=== PATIENT | male | born 1930 | race Caucasian/White ===

== ENCOUNTER 2016-09-07 13:34 | Inpatient (IN) | payer OTHER ==
[~2016-09-07] VITALS: Ht 172.7 cm; Wt 92.0 kg
--- NOTE | 2016-09-07 13:54 | EMERGENCY ROOM VISIT NOTE ---
History Report prepared by Parth: Brenda Byrne Under the Supervision of: Dr. Ami English D.O. First contact with patient: 13:43 Chief Complaint: WEAKNESS Stated Complaint: WEAK,FLEM Nursing Triage Summary: pt to the ED with c/o body aches, cough and weakness since tuesday History of Present Illness The patient is a 86 year old male who presents to the Emergency Room with complaints of worsening weakness beginning 3 days prior to arrival. The patient states that he thought at first he got the flu. The patient states that he has global body aches. The patient can typically get around on his own. These past 3 days he has needed help moving and today did not get out of bed until coming to the ED. He states that he feels off balance when he moves. The patient also is experiencing a cough with yellow sputum that at times causes intermittent left sided chest pain. The patient notes two episodes of diarrhea. He is also experiencing a decrease in his appetite. Pt denies headache, change in vision, fevers, chills, sore throat, shortness of breath, nausea, vomiting, pain with urination, and melena. 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 A total of 10 systems reviewed and were otherwise negative. Past Medical & Surgical Medical Problems: (1) Cough (2) Heart murmur Family History Patient reports no known family medical history. Social History Smoking Status: Never Smoker Marital Status: Housing Status: lives with significant other Occupation Status: retired Current/Historical Medications Scheduled Aspirin (Aspirin Ec), 81 MG PO DAILY Atorvastatin (Lipitor), 40 MG PO DAILY Furosemide (Lasix), 20 MG PO EDEMA Insulin Aspart 70/30 (Novolog Mix 70/30), 36 UNITS SC QAM Insulin Aspart 70/30 (Novolog Mix 70/30), 34 UNITS SC QPM Lisinopril (Zestril), 5 MG PO DAILY Pantoprazole (Protonix), 40 MG PO DAILY Allergies Coded Allergies: No Known Allergies (Unverified , 09/07/16) Physical Exam Vital Signs Date Time Temp Pulse Resp B/P (MAP) Pulse Ox O2 Delivery O2 Flow Rate FiO2 7/11/17 16:00 75 18 141/68 94 09/07/16 15:00 72 18 141/72 94 09/07/16 14:00 69 18 147/69 96 09/07/16 13:38 37.3 84 24 132/64 93 Room Air Physical Exam GENERAL: alert, well appearing, well nourished, no distress, non-toxic EYE EXAM: normal conjunctiva, PERRL and EOM's grossly intact OROPHARYNX: no exudate, no erythema, lips, buccal mucosa, and tongue normal and mucous membranes are moist NECK: supple, no nuchal rigidity, no adenopathy, non-tender LUNGS: Clear to auscultation. Normal chest wall mechanics HEART: no murmurs, S1 normal and S2 normal ABDOMEN: abdomen soft, non-tender, normo-active bowel sounds, no masses, no rebound or guarding. BACK: Back is symmetrical on inspection and there is no deformity, no midline tenderness, no CVA tenderness. SKIN: no rashes and no bruising UPPER EXTREMITIES: upper extremities are grossly normal. LOWER EXTREMITIES: No pitting edema. NEURO EXAM: Normal sensorium, cranial nerves II-XII intact, normal speech, Patient with shuffling gait, difficulty walking, required 2 person assistance secondary to weakness. Medical Decision & Procedures ER Provider Diagnostic Interpretation: XRAY result has been interpreted by the radiologist and reviewed by me. SINGLE VIEW CHEST CLINICAL HISTORY: Cough. Generalized weakness FINDINGS: An AP, portable, upright chest radiograph is obtained. No prior studies are available for comparison at the time of dictation. The examination is degraded by portable technique and patient rotation. . The heart is mildly enlarged and there is atherosclerotic calcification of the thoracic aorta. The pulmonary vasculature is noncongested. Airspace consolidation is suggested at the left lung base in the retrocardiac region. No large pleural effusion or pneumothorax is seen. The skeletal structures are osteopenic. The bony thorax is grossly intact. IMPRESSION: Airspace consolidation is suspected at the left lung base in the retrocardiac region. Correlate clinically for evidence of pneumonia. Radiographic follow-up to resolution is recommended.. Electronically signed by: Ethan Love M.D. 09/07/2016 3:31 PM Dictated Date/Time: 09/07/2016 3:30 PM Laboratory Results Test 09/07/16 14:20 09/07/16 14:40 09/07/16 15:00 Prothrombin Time 11.9 SECONDS (9.0-12.0) Prothromb Time International Ratio 1.1 (0.9-1.1) Magnesium Level 1.8 mg/dl (1.8-2.4) Total Bilirubin 1.2 mg/dl (0.2-1) Aspartate Amino Transf (AST/SGOT) 29 U/L (15-37) Alanine Aminotransferase (ALT/SGPT) 39 U/L (12-78) Alkaline Phosphatase 111 U/L (45-117) Pro-B-Type Natriuretic Peptide 805 pg/ml (0-1800) Total Protein 7.7 gm/dl (6.4-8.2) Albumin 2.8 gm/dl (3.4-5.0) Globulin 4.9 gm/dl (2.5-4.0) Albumin/Globulin Ratio 0.6 (0.9-2) Influenza Type A Antigen Neg for Influ A (NEG) Influenza Type B Antigen Neg for Influ B (NEG) Urine Color DK YELLOW Urine Appearance CLOUDY (CLEAR) Urine pH 5.0 (4.5-7.5) Urine Specific Whitmer 1.022 (1.000-1.030) Urine Protein TRACE (NEG) Urine Glucose (UA) NEG (NEG) Urine Ketones NEG (NEG) Urine Occult Blood 1+ (NEG) Urine Nitrite NEG (NEG) Urine Bilirubin NEG (NEG) Urine Urobilinogen NEG (NEG) Urine Leukocyte Esterase NEG (NEG) Urine RBC (Auto) /hpf (0-4) Urine Hyaline Casts (Auto) /lpf (0-5) Urine RBC 5-10 /hpf (0-4) Urine WBC 1-5 /hpf (0-5) Urine Epithelial Cells 0-5 /lpf (0-5) Urine Amorphous Sediment PRESENT (NONE PRSENT) Urine Bacteria NEG (NEG) Urine Hyaline Casts 5-10 /lpf (0-5) Urine Pathogenic Casts /lpf (0) Urine Yeast (Auto) (NONE PRSENT) Date/Time Source Procedure Growth Status 09/07/16 15:00 Urine , Clean Catch Urine Culture - Final MORE THAN THREE TYPES OF ORGANISMS [place]... Complete Laboratory results per my review. Medications Administered Medications (Trade) Dose Ordered Sig/Kameron Route Start Time Stop Time Status Last Admin Dose Admin Sodium Chloride 1,000 ml @ 250 mls/hr Q4H STAT IV 09/07/16 15:31 09/07/16 19:30 DC 09/07/16 15:31 250 MLS/HR Ceftriaxone Sodium (Rocephin Inj) 1 gm NOW STAT IV 09/07/16 15:38 09/07/16 15:39 DC 09/07/16 15:46 1 GM Azithromycin (Zithromax Tab) 500 mg NOW ONCE PO 09/07/16 15:45 09/07/16 15:46 DC 09/07/16 15:46 500 MG Sodium Chloride 1,000 ml @ 100 mls/hr Q10H IV 09/07/16 16:21 10/07/16 16:20 09/08/16 21:51 100 MLS/HR ECG Indication: weakness Rate (beats per minute): 80 Rhythm: normal sinus Findings: no acute ischemic change, no ectopy, other (normal interval, normal axis) ED Course 1344: The patient was evaluated in room A11. A complete history and physical exam was performed. 1524: I reevaluated the patient. 1531: Sodium Chloride 1,000 ml @ 250 mls/hr IV. 1545: Zithromax Tab 500 mg PO. Medical Decision The patient is a 86 year old male who presents to the ED with complaints of weakness. Differential Diagnosis includes but is not limited to dehydration, stroke, anemia, hypoglycemia, hyponatremia, hypernatremia, urinary tract infection, pneumonia, bronchitis, sepsis, gastroenteritis, additional abdominal pathology, metabolic abnormalities and infections. Patient found to have pneumonia, likely the cause of patient's generalized weakness, dizziness, and decline of the last several days. Patient treated here for community-acquired, no risk factors for atypical pathogens, not immune compromised no recent hospitalizations or patient rehabilitation stays. Doubt bacteremia/sepsis. Mildly elevated lactic acid likely secondary to poor by mouth intake and dehydration. Doubt additional cardiac or vascular pathology. Patient cautiously given IV fluids here. Patient with worsening renal function that is new according to family. No evidence of UTI, exam not consistent with obstructive pathology. We'll likely need additional evaluation and trending of creatinine. Discussed all results with patient and family at bedside. Vital signs otherwise stable in the emergency room. Consults Time Called: [phone] Consulting Physician: Dr. Guerra Returned Call: [phone] Guerra for admission. Would like repeat lactic acid level drawn following administration of 1 L of IV fluids. He will otherwise evaluate and treat. Impression Primary Impression: Pneumonia Additional Impressions: Generalized weakness Acute renal failure Scribe Attestation The scribe's documentation has been prepared under my direction and personally reviewed by me in its entirety. I confirm that the note above accurately reflects all work, treatment, procedures, and medical decision making performed by me. Departure Information Dispostion Being Evaluated By Hospitalist Referrals Mary Jo Noyola D.O. (PCP) Problem Qualifiers Primary Impression: Pneumonia Pneumonia type: due to unspecified organism Laterality: left Lung location : lower lobe of lung Qualified Codes: J18.1 - Lobar pneumonia, unspecified organism Additional Impressions: Acute renal failure Acute renal failure type: unspecified Qualified Codes: N17.9 - Acute kidney failure, unspecified
[2016-09-07] MEDS ORDERED: NVLGI7030 SC ×2 (14:24)
[2016-09-07] MEDS ORDERED: ATOR-24 PO (14:24)
[2016-09-07] MEDS ORDERED: LISI-729 PO (14:24)
[2016-09-07] MEDS ORDERED: ASPI81TA28 PO (14:24)
[2016-09-07] MEDS ORDERED: FURO-85 PO (14:24)
[2016-09-07] MEDS ORDERED: PANT40TA PO (14:24)
[2016-09-07 14:42] LABS: BASO % 0.1 %; BASO ABS # 0.01 K/uL (0-0.2); COMPLETE YES; EOS % 0.3 %; HEMATOCRIT 38.3 % (42-52); IG% 0.2 %; LYMPH % 9.7 %; LYMPH ABS # 1.43 K/uL (1.2-3.4); MEAN CELL VOLUME 91.6 fL (80-100); MEAN CORPUSCULAR HEMOGLOBIN 32.8 pg (25-34); MEAN CORPUSCULAR HGB CONC 35.8 g/dl (32-36); MEAN PLATELET VOLUME 9.4 fL (7.4-10.4); MONO % 12.8 %; NEUT % 76.9 %; PLATELET COUNT 239 K/uL (130-400); RED BLOOD COUNT 4.18 M/uL (4.7-6.1); WHITE BLOOD COUNT 14.67 K/uL (4.8-10.8)
[2016-09-07 14:56] LABS: INR 1.1 (0.9-1.1); PROTHROMBIN TIME (PATIENT) 11.9 SECONDS (9.0-12.0)
[2016-09-07 15:07] LABS: ALT/SGPT 39 U/L (12-78); BLOOD UREA NITROGEN 26 mg/dl (7-18); BUN/CREATININE RATIO 11.6 (10-20); CALCIUM 8.8 mg/dl (8.5-10.1); CARBON DIOXIDE 23 mmol/L (21-32); CHLORIDE 102 mmol/L (98-107); GLUCOSE 186 mg/dl (70-99); MAGNESIUM 1.8 mg/dl (1.8-2.4); POTASSIUM 4.2 mmol/L (3.5-5.1); SODIUM 136 mmol/L (136-145)
[2016-09-07 15:12] LABS: ALB/GLOB RATIO 0.6 (0.9-2); ALKALINE PHOSPHATASE 111 U/L (45-117); AST/SGOT 29 U/L (15-37)
[2016-09-07] MEDS ORDERED: SODIUM CHLORIDE 0.9% 1000ML 1,000 ML IV STA (15:31)
[2016-09-07 15:32] LABS: URINE APPEARANCE CLOUDY (CLEAR); URINE BILIRUBIN NEG (NEG); URINE COLOR DK YELLOW; URINE NITRITE NEG (NEG); URINE SPECIFIC GRAVITY 1.022 (1.000-1.030); UROBILINOGEN NEG (NEG); ZZUR CULT IF INDIC CLEAN CATCH YES
--- NOTE | 2016-09-07 15:32 | DIAGNOSTIC IMAGING REPORT ---
SINGLE VIEW CHEST CLINICAL HISTORY: Cough. Generalized weakness FINDINGS: An AP, portable, upright chest radiograph is obtained. No prior studies are available for comparison at the time of dictation. The examination is degraded by portable technique and patient rotation. . The heart is mildly enlarged and there is atherosclerotic calcification of the thoracic aorta. The pulmonary vasculature is noncongested. Airspace consolidation is suggested at the left lung base in the retrocardiac region. No large pleural effusion or pneumothorax is seen. The skeletal structures are osteopenic. The bony thorax is grossly intact. IMPRESSION: Airspace consolidation is suspected at the left lung base in the retrocardiac region. Correlate clinically for evidence of pneumonia. Radiographic follow-up to resolution is recommended.. Electronically signed by: Ethan Love M.D. 09/07/2016 3:31 PM Dictated Date/Time: 09/07/2016 3:30 PM
[2016-09-07 15:36] LABS: MANUAL MICROSCOPIC REQUIRED? YES; REVIEW REQ? NO
[2016-09-07] MEDS ORDERED: CEFTRIAXONE SOD INJ 1 GM ADDVIAL IV STA (15:38)
[2016-09-07] MEDS ORDERED: AZITHROMYCIN 250 MG TAB PO ONE (15:45)
[2016-09-07 15:49] LABS: URINE AMORPHOUS SEDIMENT PRESENT (NONE PRSENT)
[2016-09-07 15:50] LABS: URINE BACTERIA NEG (NEG)
--- NOTE | 2016-09-07 15:56 | History and Physical ---
History & Physical Date & Time of Service: Sep 07, 2016 at 15:56 Chief Complaint: Blas Hansen Primary Care Physician: Mary Jo Noyola D.O. History of Present Illness Source: patient, family Patient is an 86 yr male with PMH of DM II, CKD III, HLP, HTN, GERD presents with history of worsening weakness and cough since 4 days duration. Patient states that on Tuesday patient developed flu like symptoms including runny nose , generalized backache, weakness and cough which gradually worsened. At baseline patient ambulates whithout help and currently requiring 2 people to help him ambulate. Reports cough with productive yellowish sputum and associated left sides chest pain with cough. Reports having chronic diarrhea and incontinence since many years and has not been worked up in the past. Also reports dizziness, decreased appetite and burning micturition but denies increased urinary frequency. Also denies any SOB, wheezing, abdominal pain, nausea, vomiting, headache, change in vision, recent travel, sick contact, fever , chills. Past Medical/Surgical History Past Medical History:As Above Past Surgical history: Appendectomy Family History Patient reports no known family medical history. Reviewed. Not contributory Social History Smoking Status: Never Smoker Alcohol Use: socially Drug Use: none Marital Status: Occupational Status: retired Allergies Coded Allergies: No Known Allergies (Unverified , 09/07/16) Home Medications Scheduled Aspirin (Aspirin Ec), 81 MG PO DAILY Atorvastatin (Lipitor), 40 MG PO DAILY Furosemide (Lasix), 20 MG PO EDEMA Insulin Aspart 70/30 (Novolog Mix 70/30), 36 UNITS SC QAM Insulin Aspart 70/30 (Novolog Mix 70/30), 34 UNITS SC QPM Lisinopril (Zestril), 5 MG PO DAILY Pantoprazole (Protonix), 40 MG PO DAILY Review of Systems See HPI for pertinent positives & negatives. A total of 10 systems reviewed and were otherwise negative. Physical Exam Vital Signs Date Time Temp Pulse Resp B/P (MAP) Pulse Ox O2 Delivery O2 Flow Rate FiO2 09/07/16 13:38 37.3 84 24 132/64 93 Room Air General Appearance: WD/WN, no apparent distress Head: normocephalic, atraumatic Eyes: normal inspection, PERRL, EOMI ENT: normal ENT inspection, hearing grossly normal Neck: supple, trachea midline Respiratory/Chest: chest non-tender, no respiratory distress, no accessory muscle use, + pertinent finding (Left base, decreased Breath sounds, few creps) Cardiovascular: regular rate, rhythm, + systolic murmur, + pertinent finding ( Trace edema) Abdomen/GI: normal bowel sounds, non tender, soft Back: normal inspection Extremities/Musculoskelatal: normal inspection, no calf tenderness, + pertinent finding (Trace eedma) 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, no motor/sensory deficits, alert, normal mood/affect, oriented x 3 Skin: normal color, warm/dry Diagnostics Laboratory Results Results Past 24 Hours Test 09/07/16 14:20 09/07/16 14:40 09/07/16 15:00 Range/Units White Blood Count 14.67 4.8-10.8 K/uL Red Blood Count 4.18 4.7-6.1 M/uL Hemoglobin 13.7 14.0-18.0 g/dL Hematocrit 38.3 42-52 % Mean Corpuscular Volume 91.6 80-100 fL Mean Corpuscular Hemoglobin 32.8 25-34 pg Mean Corpuscular Hemoglobin Concent 35.8 32-36 g/dl Platelet Count 239 130-400 K/uL Mean Platelet Volume 9.4 7.4-10.4 fL Neutrophils (%) (Auto) 76.9 % Lymphocytes (%) (Auto) 9.7 % Monocytes (%) (Auto) 12.8 % Eosinophils (%) (Auto) 0.3 % Basophils (%) (Auto) 0.1 % Neutrophils # (Auto) 11.28 1.4-6.5 K/uL Lymphocytes # (Auto) 1.43 1.2-3.4 K/uL Monocytes # (Auto) 1.88 0.11-0.59 K/uL Eosinophils # (Auto) 0.04 0-0.5 K/uL Basophils # (Auto) 0.01 0-0.2 K/uL RDW Standard Deviation 43.9 36.4-46.3 fL RDW Coefficient of Variation 13.1 11.5-14.5 % Immature Granulocyte % (Auto) 0.2 % Immature Granulocyte # (Auto) 0.03 0.00-0.02 K/uL Prothrombin Time 11.9 9.0-12.0 SECONDS Prothromb Time International Ratio 1.1 0.9-1.1 Sodium Level 136 136-145 mmol/L Potassium Level 4.2 3.5-5.1 mmol/L Chloride Level 102 98-107 mmol/L Carbon Dioxide Level 23 21-32 mmol/L Anion Gap 11.0 3-11 mmol/L Blood Urea Nitrogen 26 7-18 mg/dl Creatinine 2.20 0.60-1.40 mg/dl Est Creatinine Clear Calc Drug Dose 26.9 ml/min Estimated GFR () 30.3 Estimated GFR (Non- 26.2 BUN/Creatinine Ratio 11.6 10-20 Random Glucose 186 70-99 mg/dl Lactic Acid Level 2.5 0.4-2.0 mmol/L Calcium Level 8.8 8.5-10.1 mg/dl Magnesium Level 1.8 1.8-2.4 mg/dl Total Bilirubin 1.2 0.2-1 mg/dl Aspartate Amino Transf (AST/SGOT) 29 15-37 U/L Alanine Aminotransferase (ALT/SGPT) 39 12-78 U/L Alkaline Phosphatase 111 45-117 U/L Troponin I < 0.015 0-0.045 ng/ml Pro-B-Type Natriuretic Peptide 805 0-1800 pg/ml Total Protein 7.7 6.4-8.2 gm/dl Albumin 2.8 3.4-5.0 gm/dl Globulin 4.9 2.5-4.0 gm/dl Albumin/Globulin Ratio 0.6 0.9-2 Influenza Type A Antigen Neg for Influ A NEG Influenza Type B Antigen Neg for Influ B NEG Urine Color DK YELLOW Urine Appearance CLOUDY CLEAR Urine pH 5.0 4.5-7.5 Urine Specific Hunker 1.022 1.000-1.030 Urine Protein TRACE NEG Urine Glucose (UA) NEG NEG Urine Ketones NEG NEG Urine Occult Blood 1+ NEG Urine Nitrite NEG NEG Urine Bilirubin NEG NEG Urine Urobilinogen NEG NEG Urine Leukocyte Esterase NEG NEG Urine RBC (Auto) 0-4 /hpf Urine Hyaline Casts (Auto) 0-5 /lpf Urine RBC 5-10 0-4 /hpf Urine WBC 1-5 0-5 /hpf Urine Epithelial Cells 0-5 0-5 /lpf Urine Amorphous Sediment PRESENT NONE PRSENT Urine Bacteria NEG NEG Urine Hyaline Casts 5-10 0-5 /lpf Urine Pathogenic Casts 0 /lpf Urine Yeast (Auto) NONE PRSENT Microbiology Results 09/07/16 Urine Culture, Received Pending Diagnostic Radiology CXR: Airspace consolidation is suspected at the left lung base in the retrocardiac region. Correlate clinically for evidence of pneumonia. Radiographic follow-up to resolution is recommended.. EKG EKG: NSR Impression Assessment and Plan Sepsis secondary to CAP: Presented with Leukocytosis, elevated lactate Admit in Tele Start on IV ceftriaxone, Azithromycin Blood/Sputum cultures Trend lactate levels IV fluids Oxygen PRN Check PCR for flu Left sided Chest Pain: EKG: no acute changes Troponin 1st set negative Currently chest pain free ESPINOZA on CKD III: Baseline Cr:1.6 Monitor renal function Continue IV Fluids Hold lisinopril, Lasix Burning Micturition: UTI less likely Urine culture ordered Already on Ceftriaxone DM II Last A1C:7.4 in 06/2014 Takes Novolog 70/30 BID: 38 units AM and 36 units HS Start ISS, Lantus: Titrate as needed HLP: Continue statins HTN: Stable Hold lisinopril, Lasix secondary to ESPINOZA and sepsis Monitor GERD Continue PPI DVT PX: Heparin SQ Code Status: Full Code
[2016-09-07] MEDS ORDERED: ONDANSETRON INJ 2 MG/ML 2 ML VIAL IV PRN (16:30)
[2016-09-07] MEDS ORDERED: ACETAMINOPHEN 325 MG TAB PO PRN (16:30)
[2016-09-07] MEDS ORDERED: GLUCOSE 10 TABS/TUBE PO PRN (16:45)
[2016-09-07] MEDS ORDERED: GLUCAGON FOR INJ 1 MG VIAL SQ PRN (16:45)
[2016-09-07] MEDS ORDERED: GLUCOSE 40% GEL 15 GM TUBE PO PRN (16:45)
[2016-09-07] MEDS ORDERED: DEXTROSE 50% 50 ML SYR IV PRN (16:45)
[2016-09-07 18:21] VITALS: BP 146/75; PULSE 78; TEMP 36.9; O2SAT 93
[2016-09-07] MEDS: SODIUM CHLORIDE 0.9% 1000ML 1,000 ML IV SCH (18:28)
[2016-09-07 18:50] VITALS: BP 146/75; PULSE 78; TEMP 36.9; Ht 172.7 cm; Wt 92.0 kg
[2016-09-07] MEDS: CEFTRIAXONE SOD INJ 1 GM in DEXTROSE 5% ADD-VANTAGE 50ML 50 ML IV SCH (19:28)
[2016-09-07 19:54] VITALS: BP 129/67; PULSE 76; TEMP 37.7; O2SAT 92
[2016-09-07] MEDS ORDERED: LANTUS PER UNIT CHARGE SC SCH (20:00)
[2016-09-07] MEDS ORDERED: PNEUMOCOCCAL ADMINISTRATION CHARGE ONE (21:00)
[2016-09-07] MEDS ORDERED: PNEUMOCOCCAL POLYSACCHARIDES 25 MCG/0.5 ML VIAL/SYR IM. ONE (21:00)
[2016-09-07] MEDS: INSULIN ASPART 100 UNITS/ML 3 ML PEN SC SCH (22:13)
[2016-09-07] MEDS: INSULIN GLARGINE SOLOSTAR 100 UNITS/ML 3 ML PEN SC SCH (22:14)
[2016-09-07] MEDS: HEPARIN SOD 5000 UNIT/0.5 ML CARP SQ SCH (22:15)
[2016-09-07 23:42] VITALS: BP 132/77; PULSE 72; TEMP 36.8; O2SAT 94
[2016-09-08] VITALS (9 sets, daily range): BP systolic 115–147; BP diastolic 45–79; PULSE 71–77; TEMP 36.5–37.1; O2SAT 90–93
[2016-09-08 01:35] LABS: INFLUENZA A PCR Neg for Influ A (NEG); INFLUENZA B PCR Neg for Influ B (NEG)
[2016-09-08] MEDS: SODIUM CHLORIDE 0.9% 1000ML 1,000 ML IV SCH ×3 (03:25→21:51)
[2016-09-08 06:08] LABS: BASO % 0.1 %; BASO ABS # 0.01 K/uL (0-0.2); COMPLETE YES; EOS % 1.9 %; HEMATOCRIT 36.6 % (42-52); IG% 0.3 %; LYMPH % 15.2 %; LYMPH ABS # 1.84 K/uL (1.2-3.4); MEAN CELL VOLUME 91.3 fL (80-100); MEAN CORPUSCULAR HEMOGLOBIN 30.9 pg (25-34); MEAN CORPUSCULAR HGB CONC 33.9 g/dl (32-36); MEAN PLATELET VOLUME 9.4 fL (7.4-10.4); MONO % 14.6 %; NEUT % 67.9 %; PLATELET COUNT 239 K/uL (130-400); RED BLOOD COUNT 4.01 M/uL (4.7-6.1); WHITE BLOOD COUNT 12.13 K/uL (4.8-10.8)
[2016-09-08] MEDS: HEPARIN SOD 5000 UNIT/0.5 ML CARP SQ SCH ×3 (06:11→21:53)
[2016-09-08 06:45] LABS: ESTIMATED AVERAGE GLUCOSE 160 mg/dl; HA1C FLAG Normal (Normal)
[2016-09-08 06:46] LABS: BUN/CREATININE RATIO 13.2 (10-20); CALCIUM 8.1 mg/dl (8.5-10.1); CREATININE 1.9 mg/dl (0.60-1.40); POTASSIUM 3.5 mmol/L (3.5-5.1)
[2016-09-08] MEDS: PANTOprazole SOD 40 MG TAB PO SCH (07:59)
[2016-09-08] MEDS: ASPIRIN 81 MG ECTAB PO SCH (07:59)
[2016-09-08] MEDS: ATORVASTATIN 40 MG TAB PO SCH (07:59)
[2016-09-08] MEDS: INSULIN GLARGINE SOLOSTAR 100 UNITS/ML 3 ML PEN SC SCH ×2 (09:04→21:53)
[2016-09-08] MEDS: AZITHROMYCIN IV 500 MG in DEXTROSE 5% 250ML 250 ML IV SCH (09:04)
[2016-09-08] MEDS: INSULIN ASPART 100 UNITS/ML 3 ML PEN SC SCH ×4 (09:04→21:52)
--- NOTE | 2016-09-08 18:31 | Progress Note ---
Internal Med Progress Note Date of Service: Sep 08, 2016. Provider Documentation: SUBJECTIVE: feels better than yesterday still significantly tired and weak afebrile appetite remains poor /son /daughter in law visiting OBJECTIVE: Vital Signs-as noted below Exam: General-no sign of distress Eyes-sclera non icteric ENT-NAD Neck-no JVD Lungs-rales at base Heart-regular S1/S2 Abdomen-soft,non tender Extremities-no edema Neuro-AAO x3, no focal deficit Lab data as noted below. ASSESSMENT & PLAN: Sepsis secondary to CAP: Presented with Leukocytosis, elevated lactate /fever clinically improved, afebrile , cough has improved cont IV ceftriaxone, Azithromycin for another 24 hrs Blood/Sputum cultures-ordered lactic acid has normalized with IVF Left sided Chest Pain: due to pneumonia EKG: no acute changes Troponin 1st set negative Currently chest pain free OK to D/c tele ESPINOZA on CKD III: due to sepsis /infection Baseline Cr:1.6 Cr improved 2.2-. 1.9 Continue IV Fluids Hold lisinopril, Lasix DM II Last A1C:7.4 in 06/2014 Takes Novolog 70/30 BID: 38 units AM and 36 units HS Start ISS, Lantus: Titrate as needed HLP: Continue statins HTN: Stable Hold lisinopril, Lasix secondary to ESPINOZA and sepsis Monitor GERD Continue PPI DVT PX: Heparin SQ Code Status: Full Code DISPOSITION expected to be discharged home when medically stable PT/OT eval requested for generalized weakness family updated at baseline : Vital Signs: Date Time Temp Pulse Resp B/P (MAP) Pulse Ox O2 Delivery O2 Flow Rate FiO2 09/08/16 15:45 36.5 77 18 135/79 (97) 91 Room Air 09/08/16 12:00 91 Room Air 09/08/16 11:13 37.1 73 18 131/69 (89) 91 09/08/16 08:00 91 Room Air 09/08/16 07:24 37.0 71 18 145/73 (97) 92 Room Air 09/08/16 06:34 36.8 73 20 145/78 (100) 91 Room Air 09/08/16 05:09 37.0 73 18 115/45 (68) 90 Room Air 09/08/16 04:00 Room Air 09/08/16 00:01 Room Air 09/07/16 23:42 36.8 72 18 132/77 (95) 94 Room Air 09/07/16 20:00 Room Air 09/07/16 19:54 37.7 76 18 129/67 (87) 92 Room Air 09/07/16 18:50 36.9 78 18 146/75 Room Air Lab Results: Results Past 24 Hours Test 09/07/16 19:00 09/07/16 19:23 09/07/16 20:27 09/07/16 23:50 Range/Units Creatine Kinase MB Ratio 0-3.0 Lactic Acid Level 2.5 0.4-2.0 mmol/L Creatine Kinase MB 0.9 0.5-3.6 ng/ml Troponin I < 0.015 0-0.045 ng/ml Bedside Glucose 140 70-99 mg/dl Influenza Type A (RT-PCR) Neg for Influ A NEG Influenza Type B (RT-PCR) Neg for Influ B NEG Test 09/08/16 01:03 09/08/16 01:11 09/08/16 03:27 09/08/16 05:31 Range/Units Creatine Kinase MB 0.9 0.5-3.6 ng/ml Creatine Kinase MB Ratio 0-3.0 Troponin I < 0.015 0-0.045 ng/ml Lactic Acid Level 1.5 0.4-2.0 mmol/L Bedside Glucose 109 70-99 mg/dl White Blood Count 12.13 4.8-10.8 K/uL Red Blood Count 4.01 4.7-6.1 M/uL Hemoglobin 12.4 14.0-18.0 g/dL Hematocrit 36.6 42-52 % Mean Corpuscular Volume 91.3 80-100 fL Mean Corpuscular Hemoglobin 30.9 25-34 pg Mean Corpuscular Hemoglobin Concent 33.9 32-36 g/dl Platelet Count 239 130-400 K/uL Mean Platelet Volume 9.4 7.4-10.4 fL Neutrophils (%) (Auto) 67.9 % Lymphocytes (%) (Auto) 15.2 % Monocytes (%) (Auto) 14.6 % Eosinophils (%) (Auto) 1.9 % Basophils (%) (Auto) 0.1 % Neutrophils # (Auto) 8.24 1.4-6.5 K/uL Lymphocytes # (Auto) 1.84 1.2-3.4 K/uL Monocytes # (Auto) 1.77 0.11-0.59 K/uL Eosinophils # (Auto) 0.23 0-0.5 K/uL Basophils # (Auto) 0.01 0-0.2 K/uL RDW Standard Deviation 44.1 36.4-46.3 fL RDW Coefficient of Variation 13.2 11.5-14.5 % Immature Granulocyte % (Auto) 0.3 % Immature Granulocyte # (Auto) 0.04 0.00-0.02 K/uL Sodium Level 139 136-145 mmol/L Potassium Level 3.5 3.5-5.1 mmol/L Chloride Level 107 98-107 mmol/L Carbon Dioxide Level 21 21-32 mmol/L Anion Gap 11.0 3-11 mmol/L Blood Urea Nitrogen 25 7-18 mg/dl Creatinine 1.90 0.60-1.40 mg/dl Est Creatinine Clear Calc Drug Dose 30.7 ml/min Estimated GFR () 36.2 Estimated GFR (Non- 31.2 BUN/Creatinine Ratio 13.2 10-20 Random Glucose 104 70-99 mg/dl Estimated Average Glucose 160 mg/dl Hemoglobin A1c 7.2 4.5-5.6 % Calcium Level 8.1 8.5-10.1 mg/dl Test 09/08/16 07:38 09/08/16 11:27 09/08/16 16:19 Range/Units Bedside Glucose 101 205 166 70-99 mg/dl Microbiology Results 09/07/16 C.difficile Toxin B Gene (PCR) - Final, Complete No C. difficile toxin B gene detected
[2016-09-08] MEDS: CEFTRIAXONE SOD INJ 1 GM in DEXTROSE 5% ADD-VANTAGE 50ML 50 ML IV SCH (19:23)
[2016-09-09] VITALS: BP 142/72; PULSE 65; TEMP 37.4; O2SAT 92
[2016-09-09] MEDS: HEPARIN SOD 5000 UNIT/0.5 ML CARP SQ SCH ×3 (06:12→21:27)
[2016-09-09] MEDS: ATORVASTATIN 40 MG TAB PO SCH (07:35)
[2016-09-09] MEDS: PANTOprazole SOD 40 MG TAB PO SCH (07:35)
[2016-09-09] MEDS: ASPIRIN 81 MG ECTAB PO SCH (07:35)
[2016-09-09 07:54] VITALS: BP 141/66; PULSE 72; TEMP 36.6; O2SAT 94
[2016-09-09] MEDS: SODIUM CHLORIDE 0.9% 1000ML 1,000 ML IV SCH (07:58)
[2016-09-09 08:00] VITALS: O2SAT 94
[2016-09-09] MEDS: INSULIN ASPART 100 UNITS/ML 3 ML PEN SC SCH ×4 (08:01→21:00)
[2016-09-09] MEDS: INSULIN GLARGINE SOLOSTAR 100 UNITS/ML 3 ML PEN SC SCH ×2 (08:02→21:26)
[2016-09-09] MEDS: AZITHROMYCIN IV 500 MG in DEXTROSE 5% 250ML 250 ML IV SCH (08:58)
[2016-09-09 15:33] VITALS: BP 133/65; PULSE 68; TEMP 36.8; O2SAT 91
[2016-09-09 15:57] LABS: BUN/CREATININE RATIO 14.4 (10-20); CALCIUM 7.8 mg/dl (8.5-10.1); CREATININE 1.6 mg/dl (0.60-1.40); POTASSIUM 3.8 mmol/L (3.5-5.1)
[2016-09-09] MEDS ORDERED: LEVOFLOXACIN 500 MG TAB PO SCH (18:30)
--- NOTE | 2016-09-09 18:38 | Progress Note ---
Internal Med Progress Note Date of Service: Sep 09, 2016. Provider Documentation: SUBJECTIVE: much better today able to do PT /OT minimum cough no fever or chills OBJECTIVE: Vital Signs-as noted below Exam: General-no sign of distress Eyes-sclera non icteric ENT-NAD Neck-no JVD Lungs-rales at base Heart-regular S1/S2 Abdomen-soft,non tender Extremities-no edema Neuro-AAO x3, no focal deficit Lab data as noted below. ASSESSMENT & PLAN: Sepsis secondary to CAP: improved now Presented with Leukocytosis, elevated lactate /fever afebrile , cough has improved abx changed to PO Levaquin Blood/Sputum cultures-ordered Left sided Chest Pain: symptom has resolved due to pneumonia EKG: no acute changes Troponin 1st set negative Currently chest pain free ESPINOZA on CKD III: resolved due to sepsis /infection Baseline Cr:1.6 Cr improved 2.2-. 1.9 -> 1.6 will D/C i VD Hold lisinopril, Lasix DM II Last A1C:7.4 in 06/2014 Takes Novolog 70/30 BID: 38 units AM and 36 units HS Start ISS, Lantus: Titrate as needed HLP: Continue statins HTN: Stable Hold lisinopril, Lasix secondary to ESPINOZA and sepsis Monitor GERD Continue PPI DVT PX: Heparin SQ Code Status: Full Code DISPOSITION expected to be discharged home when medically stable cont PT/OT eval Vital Signs: Date Time Temp Pulse Resp B/P (MAP) Pulse Ox O2 Delivery O2 Flow Rate FiO2 09/09/16 16:10 Room Air 09/09/16 15:33 36.8 68 18 133/65 (87) 91 Room Air 09/09/16 08:00 94 Room Air 09/09/16 07:54 36.6 72 20 141/66 (91) 94 Room Air 09/09/16 00:00 37.4 65 20 142/72 (95) 92 Room Air 09/09/16 00:00 92 Room Air 09/08/16 19:32 36.8 77 20 147/75 (99) 93 Room Air Lab Results: Results Past 24 Hours Test 09/08/16 20:11 09/09/16 07:42 09/09/16 11:20 09/09/16 15:01 Range/Units Bedside Glucose 305 177 267 70-99 mg/dl Sodium Level 136 136-145 mmol/L Potassium Level 3.8 3.5-5.1 mmol/L Chloride Level 106 98-107 mmol/L Carbon Dioxide Level 21 21-32 mmol/L Anion Gap 9.0 3-11 mmol/L Blood Urea Nitrogen 23 7-18 mg/dl Creatinine 1.60 0.60-1.40 mg/dl Est Creatinine Clear Calc Drug Dose 36.5 ml/min Estimated GFR () 44.6 Estimated GFR (Non- 38.4 BUN/Creatinine Ratio 14.4 10-20 Random Glucose 202 70-99 mg/dl Calcium Level 7.8 8.5-10.1 mg/dl Test 09/09/16 16:37 Range/Units Bedside Glucose 201 70-99 mg/dl Microbiology Results 09/09/16 Gram Stain - Final, Resulted 09/09/16 Sputum Culture, Resulted Pending
[2016-09-09 23:29] VITALS: BP 168/80; PULSE 69; TEMP 37.3; O2SAT 91
[2016-09-10 00:58] VITALS: BP 138/66
[2016-09-10] MEDS: HEPARIN SOD 5000 UNIT/0.5 ML CARP SQ SCH ×3 (06:00→21:05)
[2016-09-10 06:54] LABS: HEMATOCRIT 34.9 % (42-52); MEAN CELL VOLUME 88.8 fL (80-100); MEAN CORPUSCULAR HEMOGLOBIN 30.5 pg (25-34); MEAN CORPUSCULAR HGB CONC 34.4 g/dl (32-36); PLATELET COUNT 266 K/uL (130-400); RED BLOOD COUNT 3.93 M/uL (4.7-6.1); WHITE BLOOD COUNT 8.93 K/uL (4.8-10.8)
[2016-09-10 07:06] LABS: BUN/CREATININE RATIO 13.2 (10-20); CALCIUM 8.4 mg/dl (8.5-10.1); CREATININE 1.5 mg/dl (0.60-1.40); POTASSIUM 3.7 mmol/L (3.5-5.1)
[2016-09-10] MEDS: INSULIN ASPART 100 UNITS/ML 3 ML PEN SC SCH ×4 (07:50→21:04)
[2016-09-10] MEDS: ASPIRIN 81 MG ECTAB PO SCH (07:51)
[2016-09-10] MEDS: INSULIN GLARGINE SOLOSTAR 100 UNITS/ML 3 ML PEN SC SCH ×2 (07:51→21:04)
[2016-09-10] MEDS: ATORVASTATIN 40 MG TAB PO SCH (07:51)
[2016-09-10] MEDS: PANTOprazole SOD 40 MG TAB PO SCH (07:52)
[2016-09-10 08:20] VITALS: BP 135/68; PULSE 56; TEMP 36.8; O2SAT 95
[2016-09-10] MEDS ORDERED: AZITHROMYCIN 250 MG TAB PO SCH (09:00)
--- NOTE | 2016-09-10 09:31 | Progress Note ---
Subjective Date of Service: Sep 10, 2016. Subjective Pt evaluation today including: conversation w/ patient, physical exam, lab review, review of studies, review of inpatient medication list Saw/examined the patient in room 277 States he feels weaker than usual, wants to get up and walk around has worked with PT/OT Denies shortness of breath or chest pain cough improving Problem List Medical Problems: (1) Acute renal failure Status: Acute (2) Generalized weakness Status: Acute (3) Pneumonia Status: Acute Review of Systems Constitutional: No fever, No chills Respiratory: + cough, + sputum, No wheezing, No shortness of breath, No dyspnea on exertion, No dyspnea at rest, No hemoptysis Cardiac: No chest pain, No edema, No palpitations Abdomen: No pain, No nausea, No vomiting, No diarrhea Heme: No abnormal bleeding/bruising Medications Current Inpatient Medications Medications (Trade) Dose Ordered Sig/Kameron Route Start Time Stop Time Status Last Admin Dose Admin Heparin Sodium (Porcine) (Heparin Sq 5000 Unit/0.5ml) 5,000 unit Q8 SQ 09/07/16 22:00 10/07/16 21:59 09/10/16 06:00 5,000 UNIT Acetaminophen (Tylenol Tab) 650 mg Q4H PRN PO 09/07/16 16:30 10/07/16 16:29 Ondansetron HCl (Zofran Inj) 4 mg Q6H PRN IV 09/07/16 16:30 10/07/16 16:29 Aspirin (Ecotrin Tab) 81 mg DAILY PO 09/08/16 09:00 10/08/16 08:59 09/10/16 07:51 81 MG Atorvastatin Calcium (Lipitor Tab) 40 mg DAILY PO 09/08/16 09:00 10/08/16 08:59 09/10/16 07:51 40 MG Pantoprazole Sodium (Protonix Tab) 40 mg DAILY PO 09/08/16 09:00 10/08/16 08:59 09/10/16 07:52 40 MG Insulin Aspart (novoLOG ASPART) SLIDING SCALE If C... ACHS SC 09/07/16 21:00 10/07/16 20:59 09/10/16 07:50 3 UNITS Glucose (Glucose 40% Gel) 15-30 GRAMS 15 GRAMS... UD PRN PO 09/07/16 16:45 10/07/16 16:44 Glucose (Glucose Chew Tab) 4-8 Tablets 4 Tabl... UD PRN PO 09/07/16 16:45 10/07/16 16:44 Dextrose (Dextrose 50% 50ML Syringe) 25-50ML OF 50% DW IV FOR... UD PRN IV 09/07/16 16:45 10/07/16 16:44 Glucagon (Glucagon Inj) 1 mg UD PRN SQ 09/07/16 16:45 10/07/16 16:44 Insulin Glargine (Lantus Solostar Pen) 15 units BID SC 09/09/16 21:00 10/09/16 20:59 09/10/16 07:51 15 UNITS Levofloxacin (Levaquin Tab) 250 mg DAILY@11 PO 09/10/16 11:00 09/16/16 10:59 Objective Vital Signs Date Time Temp Pulse Resp B/P (MAP) Pulse Ox O2 Delivery O2 Flow Rate FiO2 09/10/16 08:20 36.8 56 18 135/68 (90) 95 Room Air 09/10/16 00:58 138/66 (90) 09/10/16 00:00 Room Air 09/09/16 23:29 37.3 69 18 168/80 (109) 91 Room Air 09/09/16 16:10 Room Air 09/09/16 15:33 36.8 68 18 133/65 (87) 91 Room Air Physical Exam General Appearance: no apparent distress Respiratory/Chest: chest non-tender, lungs clear, normal breath sounds, no respiratory distress, no accessory muscle use Cardiovascular: regular rate, rhythm, no edema, no murmur Abdomen: normal bowel sounds, non tender, soft Neurologic/Psychiatric: no motor/sensory deficits, alert, normal mood/affect Skin: normal color Laboratory Results Last 24 Hours Test 09/09/16 11:20 09/09/16 15:01 09/09/16 16:37 09/09/16 20:03 Bedside Glucose 267 mg/dl 201 mg/dl 138 mg/dl Sodium Level 136 mmol/L Potassium Level 3.8 mmol/L Chloride Level 106 mmol/L Carbon Dioxide Level 21 mmol/L Anion Gap 9.0 mmol/L Blood Urea Nitrogen 23 mg/dl Creatinine 1.60 mg/dl Est Creatinine Clear Calc Drug Dose 36.5 ml/min Estimated GFR () 44.6 Estimated GFR (Non- 38.4 BUN/Creatinine Ratio 14.4 Random Glucose 202 mg/dl Calcium Level 7.8 mg/dl Test 09/10/16 06:16 09/10/16 07:32 White Blood Count 8.93 K/uL Red Blood Count 3.93 M/uL Hemoglobin 12.0 g/dL Hematocrit 34.9 % Mean Corpuscular Volume 88.8 fL Mean Corpuscular Hemoglobin 30.5 pg Mean Corpuscular Hemoglobin Concent 34.4 g/dl RDW Standard Deviation 41.8 fL RDW Coefficient of Variation 12.9 % Platelet Count 266 K/uL Mean Platelet Volume 9.0 fL Sodium Level 140 mmol/L Potassium Level 3.7 mmol/L Chloride Level 109 mmol/L Carbon Dioxide Level 22 mmol/L Anion Gap 9.0 mmol/L Blood Urea Nitrogen 20 mg/dl Creatinine 1.50 mg/dl Est Creatinine Clear Calc Drug Dose 38.9 ml/min Estimated GFR () 48.2 Estimated GFR (Non- 41.6 BUN/Creatinine Ratio 13.2 Random Glucose 126 mg/dl Calcium Level 8.4 mg/dl Bedside Glucose 122 mg/dl Assessment and Plan This is an 86 year old male with a PMH of DM2, CKD stage 3, HTN, HLD presented to the hospital with weakness and cough and found to have sepsis secondary to pneumonia Sepsis secondary to CAP much improved WBC and lactic acidosis resolved cough improving now on PO antibiotics will need more PT/OT due to weakness prior to discharge home L Sided Chest Pain, resolved denies chest pain, likely pain is related to pneumonia initial set of cardiac enzymes negative, no pain has recurred Acute Kidney Injury superimposed on CKD stage 3 creatinine on admission 2.2 has been trending downwards, down to 1.5 no longer on IVFs, encourage PO intake DM2 Currently on sliding scale and Lantus BSGs are improving; goal should be around 140-180 HTN hold CACHORRO-I and Lasix for now due to ESPINOZA BP has been doing okay without these HLD Continue statins GERD Continue PPI DVT ppx Heparin SQ FULL CODE
[2016-09-10] MEDS: LEVOFLOXACIN 250 MG TAB PO SCH (12:16)
[2016-09-10 15:36] VITALS: BP 143/65; PULSE 57; TEMP 36.5; O2SAT 92
[2016-09-10 19:40] VITALS: O2SAT 92
[2016-09-10 23:35] VITALS: BP 133/74; PULSE 60; TEMP 36.9; O2SAT 93
[2016-09-11] MEDS: HEPARIN SOD 5000 UNIT/0.5 ML CARP SQ SCH (05:52)
[2016-09-11 06:28] LABS: HEMATOCRIT 35.5 % (42-52); MEAN CELL VOLUME 89.2 fL (80-100); MEAN CORPUSCULAR HEMOGLOBIN 31.7 pg (25-34); MEAN CORPUSCULAR HGB CONC 35.5 g/dl (32-36); MEAN PLATELET VOLUME 8.8 fL (7.4-10.4); PLATELET COUNT 313 K/uL (130-400); RED BLOOD COUNT 3.98 M/uL (4.7-6.1); WHITE BLOOD COUNT 8.29 K/uL (4.8-10.8)
[2016-09-11 07:07] LABS: BUN/CREATININE RATIO 12.1 (10-20); CALCIUM 8.7 mg/dl (8.5-10.1); CREATININE 1.7 mg/dl (0.60-1.40); POTASSIUM 3.6 mmol/L (3.5-5.1)
[2016-09-11 07:24] VITALS: BP 151/67; PULSE 61; TEMP 36.7; O2SAT 93
[2016-09-11] MEDS: PANTOprazole SOD 40 MG TAB PO SCH (07:59)
[2016-09-11] MEDS: ASPIRIN 81 MG ECTAB PO SCH (07:59)
[2016-09-11] MEDS: ATORVASTATIN 40 MG TAB PO SCH (07:59)
[2016-09-11] MEDS: INSULIN ASPART 100 UNITS/ML 3 ML PEN SC SCH ×2 (08:27→12:32)
[2016-09-11] MEDS: INSULIN GLARGINE SOLOSTAR 100 UNITS/ML 3 ML PEN SC SCH (08:27)
[2016-09-11] MEDS ORDERED: LVQ250 PO (11:57)
--- NOTE | 2016-09-11 11:59 | Discharge Instructions ---
Discharge Instructions Date of Service Sep 11, 2016. Admission Reason for Admission: Cough, Pneumonia Discharge Discharge Diagnosis / Problem: SEPSIS -RESOLVED, /PNEUMONIA Discharge Goals Goal(s): Decrease discomfort, Diagnostic testing, Therapeutic intervention Activity Recommendations Activity Limitations: resume your previous activity . Instructions / Follow-Up Instructions / Follow-Up HOSPITAL FOLLOW UP WITH FAMILY PHYSICIAN IN A WEEK , PLEASE CALL OFFICE FOR APPOINTMENT Current Hospital Diet Patient's current hospital diet: Diabetes Type 2 Diet Discharge Diet Recommended Diet: Diabetes Type 2 Diet Pending Studies Studies pending at discharge: no Laboratory Results Hemoglobin A1c Test 09/08/16 05:31 Range/Units Estimated Average Glucose 160 mg/dl Hemoglobin A1c 7.2 H 4.5-5.6 % Medical Emergencies . Who to Call and When: Medical Emergencies: If at any time you feel your situation is an emergency, please call 911 immediately. . Non-Emergent Contact Non-Emergency issues call your: Primary Care Provider . . "Provider Documentation" section prepared by Kate Collins. . VTE Core Measure Inpt VTE Proph given/why not?: Unfractionated heparin SQ
[2016-09-11 12:13] VITALS: BP 151/67; PULSE 61; TEMP 36.7; O2SAT 93
--- NOTE | 2016-09-11 12:19 | Progress Note ---
Internal Med Progress Note Date of Service: Sep 11, 2016. Provider Documentation: SUBJECTIVE: no complain of cough or SOB ambulated independently in hallway energy and functional level is back to baseline eager to be discharged home today present at bedside OBJECTIVE: Vital Signs-as noted below Exam: General-no sign of distress Eyes-sclera non icteric ENT-NAD Neck-no JVD Lungs-clear to auscultate , no wheeze or rales Heart-regular S1/S2 Abdomen-soft,non tender Extremities-no edema Neuro-AAO x3, no focal deficit Lab data as noted below. ASSESSMENT & PLAN: Sepsis secondary to CAP: resolved , no fever or chills , cough has improved Presented with Leukocytosis, elevated lactate /fever abx changed to PO Levaquin complete 2 more days tx Blood culture -no growth /Sputum cultures -normal [place] Left sided Chest Pain: symptom has resolved no further complain due to pneumonia EKG: no acute changes Troponin 1st set negative ESPINOZA on CKD III: resolved , cr at baseline due to sepsis /infection lisinopril, Lasix-resumed on discharge DM II Last A1C:7.4 in 06/2014 Takes Novolog 70/30 BID: 38 units AM and 36 units HS-resumed on discharge HLP: Continue statins HTN: Stable cont lisinopril, Lasix Monitor GERD Continue PPI DVT PX: Heparin SQ Code Status: Full Code DISPOSITION appreciate PT/OT eval pt is at his baseline functional status able to walk on hallway ; walk up steps stable to be discharged home pt and family does not feel need for home health visiting nurse Family physician follow up in 1 week Vital Signs: Date Time Temp Pulse Resp B/P (MAP) Pulse Ox O2 Delivery O2 Flow Rate FiO2 09/11/16 08:00 Room Air 09/11/16 07:24 36.7 61 18 151/67 (95) 93 Room Air 09/11/16 00:35 Room Air 09/10/16 23:35 36.9 60 20 133/74 (93) 93 Room Air 09/10/16 19:40 92 Room Air 09/10/16 16:00 Room Air 09/10/16 15:36 36.5 57 16 143/65 (91) 92 Room Air Lab Results: Results Past 24 Hours Test 09/10/16 16:26 09/10/16 20:25 09/11/16 06:03 09/11/16 07:33 Range/Units Bedside Glucose 127 185 134 70-99 mg/dl White Blood Count 8.29 4.8-10.8 K/uL Red Blood Count 3.98 4.7-6.1 M/uL Hemoglobin 12.6 14.0-18.0 g/dL Hematocrit 35.5 42-52 % Mean Corpuscular Volume 89.2 80-100 fL Mean Corpuscular Hemoglobin 31.7 25-34 pg Mean Corpuscular Hemoglobin Concent 35.5 32-36 g/dl RDW Standard Deviation 41.6 36.4-46.3 fL RDW Coefficient of Variation 12.9 11.5-14.5 % Platelet Count 313 130-400 K/uL Mean Platelet Volume 8.8 7.4-10.4 fL Sodium Level 140 136-145 mmol/L Potassium Level 3.6 3.5-5.1 mmol/L Chloride Level 105 98-107 mmol/L Carbon Dioxide Level 26 21-32 mmol/L Anion Gap 9.0 3-11 mmol/L Blood Urea Nitrogen 21 7-18 mg/dl Creatinine 1.70 0.60-1.40 mg/dl Est Creatinine Clear Calc Drug Dose 34.3 ml/min Estimated GFR () 41.4 Estimated GFR (Non- 35.7 BUN/Creatinine Ratio 12.1 10-20 Random Glucose 136 70-99 mg/dl Calcium Level 8.7 8.5-10.1 mg/dl Test 09/11/16 11:35 Range/Units Bedside Glucose 188 70-99 mg/dl
--- NOTE | 2016-09-11 12:22 | Discharge Summary ---
Discharge Summary Date of Service Sep 11, 2016. Discharge Summary Admission Date: Sep 07, 2016 at 16:26 Discharge Date: Sep 11, 2016 Discharge Disposition: Home Principal Diagnosis: SEPSIS -RESOLVED, /PNEUMONIA Procedures: CXRAY : IMPRESSION: Airspace consolidation is suspected at the left lung base in the retrocardiac region. Correlate clinically for evidence of pneumonia. Radiographic follow-up to resolution is recommended.. Medication Reconciliation New Medications: Levofloxacin (Levofloxacin) 250 Mg Tab 250 MG PO DAILY for 2 Days, #2 TAB Continued Medications: Aspirin (Aspirin Ec) 81 Mg Tab 81 MG PO DAILY Atorvastatin (Lipitor) 40 Mg Tab 40 MG PO DAILY Furosemide (Lasix) 20 Mg Tab 20 MG PO EDEMA Insulin Aspart 70/30 (Novolog Mix 70/30) Susp 36 UNITS SC QAM Insulin Aspart 70/30 (Novolog Mix 70/30) Susp 34 UNITS SC QPM Lisinopril (Zestril) 5 Mg Tab 5 MG PO DAILY Pantoprazole (Protonix) 40 Mg Tab 40 MG PO DAILY Admission Information HPI (per Admitting provider): Patient is an 86 yr male with PMH of DM II, CKD III, HLP, HTN, GERD presents with history of worsening weakness and cough since 4 days duration. Patient states that on Tuesday patient developed flu like symptoms including runny nose , generalized backache, weakness and cough which gradually worsened. At baseline patient ambulates whithout help and currently requiring 2 people to help him ambulate. Reports cough with productive yellowish sputum and associated left sides chest pain with cough. Reports having chronic diarrhea and incontinence since many years and has not been worked up in the past. Also reports dizziness, decreased appetite and burning micturition but denies increased urinary frequency. Also denies any SOB, wheezing, abdominal pain, nausea, vomiting, headache, change in vision, recent travel, sick contact, fever , chills. Physical Exam (per Admitting): General Appearance: WD/WN, no apparent distress Head: normocephalic, atraumatic Eyes: normal inspection, PERRL, EOMI ENT: normal ENT inspection, hearing grossly normal Neck: supple, trachea midline Respiratory/Chest: chest non-tender, no respiratory distress, no accessory muscle use, + pertinent finding (Left base, decreased Breath sounds, few creps) Cardiovascular: regular rate, rhythm, + systolic murmur, + pertinent finding (Trace edema) Abdomen/GI: normal bowel sounds, non tender, soft Back: normal inspection Extremities/Musculoskelatal: normal inspection, no calf tenderness, + pertinent finding (Trace eedma) 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, no motor/sensory deficits, alert , normal mood/affect, oriented x 3 Skin: normal color, warm/dry Hospital Course Sepsis secondary to CAP: resolved , no fever or chills , cough has improved Presented with Leukocytosis, elevated lactate /fever abx changed to PO Levaquin complete 2 more days tx Blood culture -no growth /Sputum cultures -normal [place] Left sided Chest Pain: symptom has resolved no further complain due to pneumonia EKG: no acute changes Troponin 1st set negative ESPINOZA on CKD III: resolved , cr at baseline due to sepsis /infection lisinopril, Lasix-resumed on discharge DM II Last A1C:7.4 in 06/2014 Takes Novolog 70/30 BID: 38 units AM and 36 units HS-resumed on discharge HLP: Continue statins HTN: Stable cont lisinopril, Lasix Monitor GERD Continue PPI DVT PX: Heparin SQ Code Status: Full Code DISPOSITION appreciate PT/OT eval pt is at his baseline functional status able to walk on hallway ; walk up steps stable to be discharged home pt and family does not feel need for home health visiting nurse Family physician follow up in 1 week Total time spent on discharge = 35 mins This includes examination of the patient, discharge planning, medication reconciliation, and communication with other providers. Discharge Instructions Discharge Instructions Date of Service Sep 11, 2016. Admission Reason for Admission: Cough, Pneumonia Discharge Discharge Diagnosis / Problem: SEPSIS -RESOLVED, /PNEUMONIA Discharge Goals Goal(s): Decrease discomfort, Diagnostic testing, Therapeutic intervention Activity Recommendations Activity Limitations: resume your previous activity . Instructions / Follow-Up Instructions / Follow-Up HOSPITAL FOLLOW UP WITH FAMILY PHYSICIAN IN A WEEK , PLEASE CALL OFFICE FOR APPOINTMENT Current Hospital Diet Patient's current hospital diet: Diabetes Type 2 Diet Discharge Diet Recommended Diet: Diabetes Type 2 Diet Pending Studies Studies pending at discharge: no Laboratory Results Hemoglobin A1c Test 09/08/16 05:31 Range/Units Estimated Average Glucose 160 mg/dl Hemoglobin A1c 7.2 H 4.5-5.6 % Medical Emergencies . Who to Call and When: Medical Emergencies: If at any time you feel your situation is an emergency, please call 911 immediately. . Non-Emergent Contact Non-Emergency issues call your: Primary Care Provider . . "Provider Documentation" section prepared by Kate Collins. . VTE Core Measure Inpt VTE Proph given/why not?: Unfractionated heparin SQ
[2016-09-11] MEDS: LEVOFLOXACIN 250 MG TAB PO SCH (12:33)
== END 2016-09-11 13:07 | disposition home or self-care (01) | DRG 871 ==
LOC: C.EDB 13:37 → C.MED 16:26 → CANRESERV 16:41 → ENRESERV 16:41
PROVIDERS: ADMIT Internal Medicine; ATTEND Hospitalist
DX: A41.9 Sepsis, unspecified organism (principal); J18.9 Pneumonia, unspecified organism; R65.20 Severe sepsis without septic shock; N17.9 Acute kidney failure, unspecified; E87.2 Acidosis; R19.7 Diarrhea, unspecified; E11.9 Type 2 diabetes mellitus without complications; N18.3 Chronic kidney disease, stage 3 (moderate); I12.9 Hypertensive chronic kidney disease with stage 1 through stage 4 chronic kidney disease, or unspecified chronic kidney disease; K21.9 Gastro-esophageal reflux disease without esophagitis; E78.5 Hyperlipidemia, unspecified; Z51.81 Encounter for therapeutic drug level monitoring; Z79.899 Other long term (current) drug therapy; Z79.82 Long term (current) use of aspirin; Z79.4 Long term (current) use of insulin

== ENCOUNTER 2016-12-11 13:17 | Inpatient (IN) | payer OTHER ==
[~2016-12-11] VITALS: Ht 172.7 cm; Wt 91.5 kg
[~2016-12-11 13:17] MED LIST: ASPI81TA28 PO; ATOR-24 PO; FURO-85 PO; LISI-729 PO; LVQ250 PO; NVLGI7030 SC; PANT40TA PO
[2016-12-11] MEDS ORDERED: SODIUM CHLORIDE 0.9% 1000ML 1,000 ML IV STA (13:53)
[2016-12-11 14:31] LABS: BASO % 0.1 %; BASO ABS # 0.01 K/uL (0-0.2); COMPLETE YES; EOS % 1.5 %; HEMATOCRIT 43.1 % (42-52); IG% 0.1 %; LYMPH % 42.5 %; LYMPH ABS # 3.02 K/uL (1.2-3.4); MEAN CELL VOLUME 89.4 fL (80-100); MEAN CORPUSCULAR HEMOGLOBIN 30.3 pg (25-34); MEAN CORPUSCULAR HGB CONC 33.9 g/dl (32-36); MEAN PLATELET VOLUME 9.6 fL (7.4-10.4); MONO % 9.8 %; PLATELET COUNT 199 K/uL (130-400); RED BLOOD COUNT 4.82 M/uL (4.7-6.1); WHITE BLOOD COUNT 7.11 K/uL (4.8-10.8)
[2016-12-11 14:35] LABS: URINE APPEARANCE CLEAR (CLEAR); URINE BILIRUBIN NEG (NEG); URINE COLOR YELLOW; URINE NITRITE NEG (NEG); URINE SPECIFIC GRAVITY 1.027 (1.000-1.030); UROBILINOGEN NEG (NEG)
--- NOTE | 2016-12-11 14:35 | DIAGNOSTIC IMAGING REPORT ---
CT SCAN OF THE BRAIN WITHOUT IV CONTRAST CLINICAL HISTORY: Generalized weakness. COMPARISON STUDY: No priors. TECHNIQUE: Unenhanced axial CT scan of the brain is performed from the vertex to the skull base. CT DOSE: 614.27 mGy.cm FINDINGS: Brain parenchyma: There are age-related involutional changes noting mild subcortical and periventricular microangiopathic change. There is no hemorrhage, mass effect, or evidence of acute territorial ischemia by CT criteria. See-white matter is preserved. No extra-axial fluid collection is seen. Ventricles, sulci, cisterns: Prominent secondary to involutional change. Intracranial vasculature: There is atherosclerotic calcification of the cavernous carotid and vertebral arteries. Calvarium: Unremarkable. Sinuses and mastoids: The visualized paranasal sinuses are clear. The mastoid air cells are well pneumatized. Orbits: The bony orbits are grossly intact. There are bilateral ocular lens implants. IMPRESSION: There is no hemorrhage, mass effect, or evidence of acute territorial ischemia by CT criteria. Electronically signed by: Ethan Love M.D. 12/11/2016 2:34 PM Dictated Date/Time: 12/11/2016 2:32 PM
--- NOTE | 2016-12-11 14:36 | DIAGNOSTIC IMAGING REPORT ---
SINGLE VIEW CHEST CLINICAL HISTORY: Generalized weakness. FINDINGS: An AP, portable, upright chest radiograph is compared to study dated 09/07/2016. The examination is degraded by portable technique and patient rotation. The heart is mildly enlarged and there is atherosclerotic calcification of the thoracic aorta. The pulmonary vasculature is noncongested. Chronic interstitial thickening is unchanged. There is no airspace consolidation, large pleural effusion, or pneumothorax. The skeletal structures are osteopenic. The bony thorax is grossly intact. IMPRESSION: Cardiomegaly with no acute cardiopulmonary abnormality. Electronically signed by: Ethan Love M.D. 12/11/2016 2:35 PM Dictated Date/Time: 12/11/2016 2:34 PM
[2016-12-11 14:38] LABS: MANUAL MICROSCOPIC REQUIRED? NO; REVIEW REQ? NO
[2016-12-11 14:39] LABS: PROTHROMBIN TIME (PATIENT) 11.2 SECONDS (9.0-12.0)
[2016-12-11 14:50] LABS: ALT/SGPT 42 U/L (12-78); AST/SGOT 29 U/L (15-37); BLOOD UREA NITROGEN 23 mg/dl (7-18); BUN/CREATININE RATIO 13.7 (10-20); CALCIUM 9.4 mg/dl (8.5-10.1); CARBON DIOXIDE 25 mmol/L (21-32); CHLORIDE 109 mmol/L (98-107); GLUCOSE 155 mg/dl (70-99); POTASSIUM 4.1 mmol/L (3.5-5.1); SODIUM 141 mmol/L (136-145)
[2016-12-11 15:01] LABS: ALKALINE PHOSPHATASE 103 U/L (45-117)
[2016-12-11] MEDS ORDERED: ASPIRIN 324 MG CHEW PO STA (15:05)
--- NOTE | 2016-12-11 15:13 | EMERGENCY ROOM VISIT NOTE ---
History Report prepared by Parth: Christen Nunez Under the Supervision of: Dr. Kobe Mosher M.D. First contact with patient: 13:23 Chief Complaint: CONFUSION Stated Complaint: CONFUSION, DIZZY, LOSS OF MEMORY History of Present Illness The patient is an 86 year old white male with a past medical history of DM and TIA who presents to the ED with a cc of worsening confusion beginning yesterday. Per sons, they met the patient two days ago for dinner and he was complaining of dizziness. Yesterday he was confused. He didn't remember what he had done the day before. He was still dizzy and was staggering. Family states that "his memory is suddenly gone." Family denies recent falls. Negative fevers , chills, cough, chest pain, abdominal pain, urinary symptoms . He takes a daily aspirin. His BSG was 206 this morning, per . Source of History: patient, family, spouse/significant other Onset: yesterday Position: other (global) Quality: other (confusion) Timing: worsening Modifying Factors (Worsening): other (time) Associated Symptoms: No fevers, No chills, No cough, No chest pain, No abdominal pain, No urinary symptoms Note: Pt notes dizziness. Family denies recent falls. Review of Systems See HPI for pertinent positives and negatives. A total of ten systems were reviewed and were otherwise negative. Past Medical & Surgical Medical Problems: (1) Altered mental status (2) Cough (3) Diabetes mellitus (4) Heart murmur (5) TIA (transient ischemic attack) Family History Patient reports no known family medical history. Social History Smoking Status: Never Smoker Drug Use: none Marital Status: Housing Status: lives with significant other Occupation Status: retired Current/Historical Medications Scheduled Aspirin (Aspirin Ec), 81 MG PO DAILY Atorvastatin (Lipitor), 40 MG PO DAILY Furosemide (Lasix), 20 MG PO EDEMA Insulin Aspart 70/30 (Novolog Mix 70/30), 36 UNITS SC QAM Insulin Aspart 70/30 (Novolog Mix 70/30), 34 UNITS SC QPM Lisinopril (Zestril), 5 MG PO DAILY Pantoprazole (Protonix), 40 MG PO DAILY Allergies Coded Allergies: No Known Allergies (Unverified , 12/11/16) Physical Exam Vital Signs Date Time Temp Pulse Resp B/P (MAP) Pulse Ox O2 Delivery O2 Flow Rate FiO2 12/11/16 16:12 66 20 150/87 97 Room Air 12/11/16 15:45 97 Room Air 12/11/16 15:12 61 12/11/16 14:56 62 18 145/71 97 Room Air 12/11/16 14:15 97 Room Air 12/11/16 13:20 36.6 86 18 148/87 97 Room Air Physical Exam GENERAL: Awake, alert, well-appearing, NAD HENT: Normocephalic, atraumatic. EYES: Normal conjunctiva. Sclera non-icteric. NECK: Supple. No nuchal rigidity. FROM. RESPIRATORY: CTAB, no rhonchi, wheezing, crackles CARDIAC: RRR, no MRG ABDOMEN: Soft, NTND, BS+ MSK: No chest wall TTP, no LE edema NEURO: CN 2-12 intact with the exception of notable dysarthria, GCS 15, follows commands, 5/5 upper and lower extremity strength, no dysmetria, no drift, good finger to nose, no sensory deficits. Doesn't know birthday. Knows name, people in room, state, and type of building. SKIN: No rash or jaundice noted. Medical Decision & Procedures ER Provider Diagnostic Interpretation: Radiology results as stated below per my review and radiologist interpretation: CT SCAN OF THE BRAIN WITHOUT IV CONTRAST CLINICAL HISTORY: Generalized weakness. COMPARISON STUDY: No priors. TECHNIQUE: Unenhanced axial CT scan of the brain is performed from the vertex to the skull base. CT DOSE: 614.27 mGy.cm FINDINGS: Brain parenchyma: There are age-related involutional changes noting mild subcortical and periventricular microangiopathic change. There is no hemorrhage, mass effect, or evidence of acute territorial ischemia by CT criteria. See-white matter is preserved. No extra-axial fluid collection is seen. Ventricles, sulci, cisterns: Prominent secondary to involutional change. Intracranial vasculature: There is atherosclerotic calcification of the cavernous carotid and vertebral arteries. Calvarium: Unremarkable. Sinuses and mastoids: The visualized paranasal sinuses are clear. The mastoid air cells are well pneumatized. Orbits: The bony orbits are grossly intact. There are bilateral ocular lens implants. IMPRESSION: There is no hemorrhage, mass effect, or evidence of acute territorial ischemia by CT criteria. Electronically signed by: Ethan Vilbert, M.D. 12/11/2016 2:34 PM Dictated Date/Time: 12/11/2016 2:32 PM SINGLE VIEW CHEST CLINICAL HISTORY: Generalized weakness. FINDINGS: An AP, portable, upright chest radiograph is compared to study dated 09/07/2016. The examination is degraded by portable technique and patient rotation. The heart is mildly enlarged and there is atherosclerotic calcification of the thoracic aorta. The pulmonary vasculature is noncongested. Chronic interstitial thickening is unchanged. There is no airspace consolidation, large pleural effusion, or pneumothorax. The skeletal structures are osteopenic. The bony thorax is grossly intact. IMPRESSION: Cardiomegaly with no acute cardiopulmonary abnormality. Electronically signed by: Ethan Love M.D. 12/11/2016 2:35 PM Dictated Date/Time: 12/11/2016 2:34 PM Laboratory Results 12/11/16 14:12 Red Blood Count 4.82, Mean Corpuscular Volume 89.4, Mean Corpuscular Hemoglobin 30.3, Mean Corpuscular Hemoglobin Concent 33.9, Mean Platelet Volume 9.6, Neutrophils (%) (Auto) 46.0, Lymphocytes (%) (Auto) 42.5, Monocytes (%) (Auto) 9.8, Eosinophils (%) (Auto) 1.5, Basophils (%) (Auto) 0.1, Neutrophils # (Auto) 3.26, Lymphocytes # (Auto) 3.02, Monocytes # (Auto) 0.70, Eosinophils # (Auto) 0.11, Basophils # (Auto) 0.01 12/11/16 14:12 Test 12/11/16 14:00 12/11/16 14:12 Urine Color YELLOW Urine Appearance CLEAR (CLEAR) Urine pH 5.0 (4.5-7.5) Urine Specific [place] 1.027 (1.000-1.030) Urine Protein NEG (NEG) Urine Glucose (UA) NEG (NEG) Urine Ketones NEG (NEG) Urine Occult Blood NEG (NEG) Urine Nitrite NEG (NEG) Urine Bilirubin NEG (NEG) Urine Urobilinogen NEG (NEG) Urine Leukocyte Esterase NEG (NEG) White Blood Count 7.11 K/uL (4.8-10.8) Red Blood Count 4.82 M/uL (4.7-6.1) Hemoglobin 14.6 g/dL (14.0-18.0) Hematocrit 43.1 % (42-52) Mean Corpuscular Volume 89.4 fL (80-100) Mean Corpuscular Hemoglobin 30.3 pg (25-34) Mean Corpuscular Hemoglobin Concent 33.9 g/dl (32-36) Platelet Count 199 K/uL (130-400) Mean Platelet Volume 9.6 fL (7.4-10.4) Neutrophils (%) (Auto) 46.0 % Lymphocytes (%) (Auto) 42.5 % Monocytes (%) (Auto) 9.8 % Eosinophils (%) (Auto) 1.5 % Basophils (%) (Auto) 0.1 % Neutrophils # (Auto) 3.26 K/uL (1.4-6.5) Lymphocytes # (Auto) 3.02 K/uL (1.2-3.4) Monocytes # (Auto) 0.70 K/uL (0.11-0.59) Eosinophils # (Auto) 0.11 K/uL (0-0.5) Basophils # (Auto) 0.01 K/uL (0-0.2) RDW Standard Deviation 45.4 fL (36.4-46.3) RDW Coefficient of Variation 13.8 % (11.5-14.5) Immature Granulocyte % (Auto) 0.1 % Immature Granulocyte # (Auto) 0.01 K/uL (0.00-0.02) Prothrombin Time 11.2 SECONDS (9.0-12.0) Prothromb Time International Ratio 1.0 (0.9-1.1) Activated Partial Thromboplast Time 24.8 SECONDS (21.0-31.0) Partial Thromboplastin Ratio 1.0 Anion Gap 7.0 mmol/L (3-11) Estimated GFR () 41.4 Estimated GFR (Non- 35.7 BUN/Creatinine Ratio 13.7 (10-20) Calcium Level 9.4 mg/dl (8.5-10.1) Magnesium Level 2.0 mg/dl (1.8-2.4) Total Bilirubin 0.8 mg/dl (0.2-1) Direct Bilirubin 0.2 mg/dl (0-0.2) Aspartate Amino Transf (AST/SGOT) 29 U/L (15-37) Alanine Aminotransferase (ALT/SGPT) 42 U/L (12-78) Alkaline Phosphatase 103 U/L (45-117) Troponin I < 0.015 ng/ml (0-0.045) Total Protein 8.0 gm/dl (6.4-8.2) Albumin 3.6 gm/dl (3.4-5.0) Lipase 138 U/L (73-393) Thyroid Stimulating Hormone (TSH) 1.370 uIu/ml (0.300-4.500) Laboratory results reviewed by me Medications Administered Medications (Trade) Dose Ordered Sig/[place] Route Start Time Stop Time Status Last Admin Dose Admin Sodium Chloride 1,000 ml @ 999 mls/hr Q1H1M STAT IV 12/11/16 13:53 12/11/16 14:53 DC 12/11/16 14:18 999 MLS/HR Aspirin (Aspirin Chew) 324 mg NOW STAT PO 12/11/16 15:05 12/11/16 15:06 DC 12/11/16 15:18 324 MG ECG Indication: altered mental status Rate (beats per minute): 66 Rhythm: sinus rhythm Findings: PAC, other (normal intervals, normal axis. T-wave flattening anteriorly) ED Course 1323: The patient was evaluated in room B6. A complete history and physical exam was performed. 1353: NSS 1000 ml @ 999 mls/hr IV 1505: Aspirin 324 mg PO 1524: I reassessed the patient at this time. He is resting comfortably. I discussed the results and treatment plan with the patient and his family. I answered all pertaining questions that they had. They expressed understanding and verbalized agreement. 1530: I spoke with Dr. Sauceda. We discussed the patients case. The patient will be evaluated by the [facility] for further management. Medical Decision Differential diagnosis: Etiologies such as metabolic, infection, hypoglycemia, electrolyte abnormalities , cardiac sources, intracerebral event, toxicologic, neurologic, as well as others were entertained. Patient was seen and evaluated at the bedside. Patient did have noticeable dysarthria. Patient was alert and oriented to some of the questioning. Patient was able to follow commands without issue. Patient may have had some questionable left upper sternal ED dysmetria. Patient had no drift. Patient agreed strength. Patient had no infectious symptoms no history of seizure and no history of headache or migraines. Patient's sugars today a normal anion gap is also normal. Patient's white count was within normal limits. Chest x-ray clear. UA negative. CT brain negative. EKG no acute ischemic changes. Troponin negative and TSH within normal limits. Was with the family and stated that there is currently not medical reason for why this is occurring and should be seen and evaluated by the inpatient team to help further elucidate the cause of his symptoms. Patient was given a full dose aspirin and recommended for further workup as an inpatient. Medication Reconcilliation Current Medication List: was personally reviewed by me Blood Pressure Screening Patient's blood pressure: Elevated blood pressure Blood pressure disposition: Referred to PCP Consults Time Called: 1526 Consulting Physician: Dr. Sauceda Returned Call: [address] Sauceda. We discussed the patients case. The patient will be evaluated by the [facility] for further management. Impression Primary Impression: Confusion Additional Impressions: Memory loss Dysarthria Scribe Attestation The scribe's documentation has been prepared under my direction and personally reviewed by me in its entirety. I confirm that the note above accurately reflects all work, treatment, procedures, and medical decision making performed by me. Departure Information Dispostion Being Evaluated By Hospitalist Referrals Mary Jo Noyola D.O. (PCP) Patient Instructions My [facility] Problem Qualifiers
[2016-12-11 15:45] VITALS: O2SAT 97; Ht 172.7 cm; Wt 91.5 kg
[2016-12-11] MEDS ORDERED: IV FLUIDS COMPLETED PRN (16:00)
[2016-12-11] MEDS ORDERED: ACETAMINOPHEN 325 MG TAB PO PRN (16:00)
--- NOTE | 2016-12-11 16:38 | History and Physical ---
History & Physical Date & Time of Service: Dec 11, 2016 at 16:00 . Chief Complaint: confusion . Primary Care Physician: Mary Jo Noyola D.O. . History of Present Illness Source: patient, family, clinic records, hospital records 86 YO male from [facility] followed by Dr. Noyola ([facility], [place]). History of hypertension, DM type 2, and other problems noted below. Retired. Lives at home with his spouse. Has remained active- drives, does yard work, gardening, etc. Occasional mild problems with memory, but nothing unusual per family's observations. 2 nights prior to admission patient stated to family that he felt dizzy or lightheaded. Yesterday he was noted to have slurred speech,confusion, and a slightly unsteady gait. Sugars have been running around 200 (normal for him). Family concerned about persistent confusion, so they brought him to the ED today for evaluation. Patient unable to provide much history. He says that he is doing fine. No apparent fever, cough, GI symptoms, urinary symptoms, chest pain, dyspnea, headache. . Past Medical/Surgical History Chronic and Resolved Medical Problems: (1) CKD (chronic kidney disease), stage III Status: Chronic (2) Diabetes mellitus, type 2 Status: Chronic (3) Dyslipidemia Status: Chronic (4) GERD (gastroesophageal reflux disease) Status: Chronic (5) History of pneumonia Permanent Comment: August 2016 Status: Chronic (6) Hypertension Status: Chronic Surgical Problems: (1) Status post appendectomy Status: Chronic . 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[employer]) Immunizations History of Influenza Vaccine: Yes History of Pneumococcal: Yes Allergies Coded Allergies: No Known Allergies (Unverified , 12/11/16) Home Medications Scheduled Aspirin (Aspirin Ec), 81 MG PO DAILY Atorvastatin (Lipitor), 40 MG PO DAILY Furosemide (Lasix), 20 MG PO EDEMA Insulin Aspart 70/30 (Novolog Mix 70/30), 36 UNITS SC QAM Insulin Aspart 70/30 (Novolog Mix 70/30), 34 UNITS SC QPM Lisinopril (Zestril), 5 MG PO DAILY Pantoprazole (Protonix), 40 MG PO DAILY Review of Systems Constitutional- no fever; no weight loss Eyes- no acute visual changes ENT- + sinus drainage Pulmonary- no cough, no shortness of breath Cardiac- no chest pain, no dependent edema GI- no nausea, no vomiting, no diarrhea, no hematochezia - no dysuria, no hematuria Musculoskeletal- + arthritis pain Derm- no rashes, no new skin lesions, no changing skin lesions Hematologic- no unusual bruising, no unusual bleeding Lymphatics- no adenopathy Endocrine- no polyuria or polydipsia; blood sugars typically around 200 Neuro- as noted above . Physical Exam Vital Signs Date Time Temp Pulse Resp B/P (MAP) Pulse Ox O2 Delivery O2 Flow Rate FiO2 12/11/16 16:12 66 20 150/87 97 Room Air 12/11/16 15:45 97 Room Air 12/11/16 15:12 61 12/11/16 14:56 62 18 145/71 97 Room Air 12/11/16 14:15 97 Room Air 12/11/16 13:20 36.6 86 18 148/87 97 Room Air General Appearance: WD/WN, no apparent distress Head: normocephalic, atraumatic Eyes: normal inspection, PERRL, EOMI, funduscopic exam normal (eyelids and conjunctivae normal) ENT: hearing grossly normal, pharynx normal, + pertinent finding (upper and lower dentures) Neck: supple, no adenopathy, thyroid normal, trachea midline Respiratory/Chest: lungs clear, no respiratory distress, no accessory muscle use Cardiovascular: regular rate, rhythm, no gallop, no JVD, + systolic murmur (II/ sys mumur LSB), + abnormal peripheral pulses (diminished pedal pulses), + pertinent finding (trace dependent edema) Abdomen/GI: normal bowel sounds, non tender, soft, no organomegaly, no pulsatile mass Extremities/Musculoskelatal: normal inspection, no calf tenderness, normal capillary refill, + pertinent finding (onychomycosis toenails; no diabetic foot lesions) 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, + pertinent finding (alert, slow mentation, tangential, unable to complete thoughts; oriented to name, day of the week but not year, place; cannot name president; mild dysarthria; no facial palsy; motor strength upper and lower extremities intact; patellar DTR's 1/2 bilat; plantar reflexes downgoing bilat; minimal difficulty with finger-nose; no cogwheel rigidity) Skin: normal color, warm/dry, no rash Lymphatic: no adenopathy (cervical) Diagnostics Laboratory Results Results Past 24 Hours Test 12/11/16 14:00 12/11/16 14:12 Range/Units Urine Color YELLOW Urine Appearance CLEAR CLEAR Urine pH 5.0 4.5-7.5 Urine Specific [place] 1.027 1.000-1.030 Urine Protein NEG NEG Urine Glucose (UA) NEG NEG Urine Ketones NEG NEG Urine Occult Blood NEG NEG Urine Nitrite NEG NEG Urine Bilirubin NEG NEG Urine Urobilinogen NEG NEG Urine Leukocyte Esterase NEG NEG White Blood Count 7.11 4.8-10.8 K/uL Red Blood Count 4.82 4.7-6.1 M/uL Hemoglobin 14.6 14.0-18.0 g/dL Hematocrit 43.1 42-52 % Mean Corpuscular Volume 89.4 80-100 fL Mean Corpuscular Hemoglobin 30.3 25-34 pg Mean Corpuscular Hemoglobin Concent 33.9 32-36 g/dl Platelet Count 199 130-400 K/uL Mean Platelet Volume 9.6 7.4-10.4 fL Neutrophils (%) (Auto) 46.0 % Lymphocytes (%) (Auto) 42.5 % Monocytes (%) (Auto) 9.8 % Eosinophils (%) (Auto) 1.5 % Basophils (%) (Auto) 0.1 % Neutrophils # (Auto) 3.26 1.4-6.5 K/uL Lymphocytes # (Auto) 3.02 1.2-3.4 K/uL Monocytes # (Auto) 0.70 0.11-0.59 K/uL Eosinophils # (Auto) 0.11 0-0.5 K/uL Basophils # (Auto) 0.01 0-0.2 K/uL RDW Standard Deviation 45.4 36.4-46.3 fL RDW Coefficient of Variation 13.8 11.5-14.5 % Immature Granulocyte % (Auto) 0.1 % Immature Granulocyte # (Auto) 0.01 0.00-0.02 K/uL Prothrombin Time 11.2 9.0-12.0 SECONDS Prothromb Time International Ratio 1.0 0.9-1.1 Activated Partial Thromboplast Time 24.8 21.0-31.0 SECONDS Partial Thromboplastin Ratio 1.0 Sodium Level 141 136-145 mmol/L Potassium Level 4.1 3.5-5.1 mmol/L Chloride Level 109 98-107 mmol/L Carbon Dioxide Level 25 21-32 mmol/L Anion Gap 7.0 3-11 mmol/L Blood Urea Nitrogen 23 7-18 mg/dl Creatinine 1.70 0.60-1.40 mg/dl Estimated GFR () 41.4 Estimated GFR (Non- 35.7 BUN/Creatinine Ratio 13.7 10-20 Random Glucose 155 70-99 mg/dl Calcium Level 9.4 8.5-10.1 mg/dl Magnesium Level 2.0 1.8-2.4 mg/dl Total Bilirubin 0.8 0.2-1 mg/dl Direct Bilirubin 0.2 0-0.2 mg/dl Aspartate Amino Transf (AST/SGOT) 29 15-37 U/L Alanine Aminotransferase (ALT/SGPT) 42 12-78 U/L Alkaline Phosphatase 103 45-117 U/L Troponin I < 0.015 0-0.045 ng/ml Total Protein 8.0 6.4-8.2 gm/dl Albumin 3.6 3.4-5.0 gm/dl Lipase 138 73-393 U/L Thyroid Stimulating Hormone (TSH) 1.370 0.300-4.500 uIu/ml Microbiology Results 12/11/16 Urine Culture, Received Pending Diagnostic Radiology SINGLE VIEW CHEST FINDINGS: An AP, portable, upright chest radiograph is compared to study dated 09/07/2016. The examination is degraded by portable technique and patient rotation. The heart is mildly enlarged and there is atherosclerotic calcification of the thoracic aorta. The pulmonary vasculature is noncongested. Chronic interstitial thickening is unchanged. There is no airspace consolidation, large pleural effusion, or pneumothorax. The skeletal structures are osteopenic. The bony thorax is grossly intact. IMPRESSION: Cardiomegaly with no acute cardiopulmonary abnormality. Electronically signed by: Ethan Love M.D. 12/11/2016 2:35 PM Dictated Date/Time: 12/11/2016 2:[address] SCAN OF THE BRAIN WITHOUT IV CONTRAST FINDINGS: Brain parenchyma: There are age-related involutional changes noting mild subcortical and periventricular microangiopathic change. There is no hemorrhage, mass effect, or evidence of acute territorial ischemia by CT criteria. See-white matter is preserved. No extra-axial fluid collection is seen. Ventricles, sulci, cisterns: Prominent secondary to involutional change. Intracranial vasculature: There is atherosclerotic calcification of the cavernous carotid and vertebral arteries. Calvarium: Unremarkable. Sinuses and mastoids: The visualized paranasal sinuses are clear. The mastoid air cells are well pneumatized. Orbits: The bony orbits are grossly intact. There are bilateral ocular lens implants. IMPRESSION: There is no hemorrhage, mass effect, or evidence of acute territorial ischemia by CT criteria. Electronically signed by: Ethan Love M.D. 12/11/2016 2:34 PM Dictated Date/Time: 12/11/2016 2:32 PM . EKG EKG performed at 14:12 reviewed and demonstrated baseline artifact, NSR at 66 / minute, PAC's, no acute ST or T-wave abnormalities. . Impression Assessment and Plan ALTERED MENTAL STATUS Family observes change of neuro status over past 2 days, primarily manifested by confusion and dysarthric speech. No fever or signs / symptoms of infection. CT demonstrates small vessel white matter changes, no acute findings. BUN and creatinine at baseline. No extraordinary metabolic abnormalities. Neuro checks. Check MRI brain to look further for possible vascular event. Continue ASA. PT / OT / CYTOTECHNOLOGIST evals. Consult Neuro. HYPERTENSION Continue lisinopril. Follow and titrate therapy. GERD Continue PPI. CKD III Serum creatinine stable at 1.7. Maintain adequate volume status. Avoid potential nephrotoxins when able. DM TYPE 2 Family reports typical blood sugars at home run around 200. Random glucose in ED 155. Tight control not indicated given patient's advanced age and comorbidities. Hold 70/30 during hospital stay. Lantus / NovoLog per protocol. DYSLIPIDEMIA Check lipid profile. Continue atorvastatin. VTE PROPHYLAXIS SQ heparin. Ambulate. RESUSCITATION STATUS Discussed with patient and his family. He does not have a living will. He would like resuscitation attempted in the event of a cardiopulmonary arrest if there is a reasonable chance of a meaningful recovery. Therefore, code status = "Level 1" (full resuscitation). DISPOSITION Observation status per Case Management's recommendations. Will monitor on Telemetry Unit due to concern about possible stroke. Expected discharge to home, but may need skilled care or rehab. Medical follow-up with Dr. Noyola. . Advanced Directives Existing Living Will: No Existing Power of Front Desk Auxiliary: No VTE Prophylaxis VTE Risk Assessment Done? Y/N: Yes Risk Level: Moderate Given or contraindicated: Unfractionated heparin SQ
[2016-12-11] MEDS ORDERED: PNEUMOCOCCAL POLYSACCHARIDES 25 MCG/0.5 ML VIAL/SYR IM. ONE (16:45)
[2016-12-11] MEDS ORDERED: PNEUMOCOCCAL ADMINISTRATION CHARGE ONE (16:45)
[2016-12-11 17:00] VITALS: BP 174/71; PULSE 68; TEMP 36.6; O2SAT 95
[2016-12-11] MEDS ORDERED: GLUCAGON FOR INJ 1 MG VIAL SQ PRN (17:30)
[2016-12-11] MEDS ORDERED: INSULIN 70% ASPART PROTAMINE/30% ASPART SC SCH (17:30)
[2016-12-11] MEDS ORDERED: GLUCOSE 10 TABS/TUBE PO PRN (17:30)
[2016-12-11] MEDS ORDERED: GLUCOSE 40% GEL 15 GM TUBE PO PRN (17:30)
[2016-12-11] MEDS ORDERED: DEXTROSE 50% 50 ML SYR IV PRN (17:30)
[2016-12-11 19:02] VITALS: BP 127/67; PULSE 59; TEMP 36.6; O2SAT 98
[2016-12-11 20:00] VITALS: O2SAT 98
[2016-12-11] MEDS: INSULIN ASPART 100 UNITS/ML 3 ML PEN SC SCH (20:37)
[2016-12-11] MEDS: INSULIN GLARGINE SOLOSTAR 100 UNITS/ML 3 ML PEN SC SCH (20:40)
[2016-12-11] MEDS: HEPARIN SOD 5000 UNIT/0.5 ML CARP SQ SCH (20:40)
[2016-12-11 23:21] VITALS: BP 141/62; PULSE 64; TEMP 36.6; O2SAT 94
[2016-12-12] VITALS (8 sets, daily range): BP systolic 132–164; BP diastolic 55–87; PULSE 57–65; TEMP 36.3–36.7; O2SAT 92–98
[2016-12-12] MEDS ORDERED: PHARMACIST DISCHARGE MED REC CONSULT PRN (00:15)
[2016-12-12 07:26] LABS: CHOLESTEROL/HDL RATIO 4.7
[2016-12-12] MEDS ORDERED: INSULIN 70% ASPART PROTAMINE/30% ASPART SC SCH (07:30)
[2016-12-12] MEDS: INSULIN ASPART 100 UNITS/ML 3 ML PEN SC SCH ×4 (08:08→21:00)
[2016-12-12] MEDS: INSULIN GLARGINE SOLOSTAR 100 UNITS/ML 3 ML PEN SC SCH ×2 (08:09→21:44)
[2016-12-12] MEDS: HEPARIN SOD 5000 UNIT/0.5 ML CARP SQ SCH ×2 (08:10→21:45)
[2016-12-12] MEDS: ASPIRIN 81 MG ECTAB PO SCH (08:11)
[2016-12-12] MEDS: ATORVASTATIN 40 MG TAB PO SCH (08:11)
[2016-12-12] MEDS: LISINOPRIL 5 MG TAB PO SCH (08:12)
[2016-12-12] MEDS: PANTOprazole SOD 40 MG TAB PO SCH (08:12)
--- NOTE | 2016-12-12 11:00 | DIAGNOSTIC IMAGING REPORT ---
ORBIT RADIOGRAPHS 3 VIEWS HISTORY: pre-MRI screening. COMPARISON: None. FINDINGS: There are no radiopaque foreign bodies identified within the orbits. IMPRESSION: No radiopaque foreign bodies identified within the orbits. Electronically signed by: Yonis Hare M.D. 12/12/2016 10:59 AM Dictated Date/Time: 12/12/2016 10:58 AM
--- NOTE | 2016-12-12 12:39 | DIAGNOSTIC IMAGING REPORT ---
Brain MRI WITHOUT CONTRAST HISTORY: dysarthria, confusion TECHNIQUE: Multiplanar multisequence MRI of the brain was performed without the use of contrast. COMPARISON STUDY: Head CT 12/11/2016. FINDINGS: There is no mass, hematoma, midline shift. Trace fluid within the sphenoid sinus. Trace mastoid effusions. Focal areas of encephalomalacia within the bilateral anterior frontal lobes which may be due to old trauma or old infarcts. The ventricles and sulci demonstrate moderate age-related involutional changes. Scattered foci of T2 hyperintensity seen within the periventricular and subcortical white matter are nonspecific but suggestive of mild microvascular ischemic changes. The major vascular flow voids at the skull base are well-maintained. There is a 1.5 cm focus of restricted diffusion within the left anterior medial thalamus consistent with acute infarct. IMPRESSION: Acute left thalamic infarct. Electronically signed by: Yonis Hare M.D. 12/12/2016 12:37 PM Dictated Date/Time: 12/12/2016 12:31 PM
--- NOTE | 2016-12-12 12:40 | DIAGNOSTIC IMAGING REPORT ---
BILATERAL CAROTID DOPPLER STUDY HISTORY: Left thalamus infarct. COMPARISON: None. TECHNIQUE: Real-time, grayscale, and color Doppler sonography of the carotid arteries was performed. Imaging reviewed in the transverse and longitudinal planes. All measurements were calculated based on NASCET criteria. FINDINGS: Antegrade flow is seen in the bilateral vertebral arteries. The brachial pressures are hemodynamically similar. Mild calcified plaque within the bilateral carotid bifurcations. The peak systolic velocity within the right ICA is 46 cm/s. The right systolic ratio is 1.0. The peak systolic velocity within the left ICA is 54 cm/s. The left systolic ratio is 0.8. Elevated peak systolic velocity within the right external carotid artery consistent with mild stenosis of 187 cm/s. IMPRESSION: No hemodynamically significant stenosis seen within the bilateral common or internal carotid arteries. Mild right external carotid artery stenosis. Electronically signed by: Yonis Hare M.D. 12/12/2016 12:38 PM Dictated Date/Time: 12/12/2016 12:37 PM
[2016-12-12] MEDS ORDERED: CLOPIDOGREL BISULFATE 75 MG TAB PO ONE (13:45)
--- NOTE | 2016-12-12 15:39 | Progress Note ---
Medicine Progress Note Date & Time of Visit: Dec 12, 2016 at 15:12. Subjective Pt was seen and examined Lying in bed with no distress with family at bedside said that pt still a little bit confused As per his speech seems slightly improves denies any chest pain, palpitation, dizziness and SOB Objective Last 8 Hrs Date Time Temp Pulse Resp B/P (MAP) Pulse Ox O2 Delivery O2 Flow Rate FiO2 12/12/16 12:15 63 18 148/73 (98) 97 Room Air 164/79 (107) Nasal Cannula 12/12/16 12:00 Room Air 12/12/16 08:00 Room Air Physical Exam: General- No acute distress Head- atraumatic Eyes- PERRL, EOMI ENT- oropharynx clear Neck- supple, no JVD Lungs- clear to auscultation Heart- regular rhythm; no murmur Abdomen- normal bowel sounds, soft Extremities- no calf tenderness Neuro- alert, slow mentation, PERRL, EOMI; no facial palsy, mild dysarthria, motor intact Skin- warm & dry Laboratory Results: Last 24 Hours Test 12/11/16 17:10 12/11/16 20:18 12/12/16 06:19 12/12/16 07:00 Bedside Glucose 78 mg/dl 136 mg/dl 164 mg/dl Triglycerides Level 511 mg/dl Cholesterol Level 160 mg/dl HDL Cholesterol 34 mg/dl LDL Cholesterol Direct 69 mg/dl LDL Cholesterol, Calculated mg/dl VLDL Cholesterol, Calculated mg/dl Cholesterol/HDL Ratio 4.7 Test 12/12/16 12:03 Bedside Glucose 168 mg/dl Assessment & Plan ACUTE LEFT THALAMIC INFARCT Family observes lightheadedness and dizziness over past 2 days then becomes more confusion and dysarthric speech yesterday CT head showed no hemorrhage, mass effect, or evidence of acute territorial ischemia MRI of the head showed acute left thalamic infarct Continue Neuro checks. On ASA. Starting on plavix Continue PT / OT / ELECTRICAL CALIBRATOR evals. As per PT notes, pt is at fall risk due to lack of safety awareness recommend 24 hour care at home due to pt confusion or SNF to continue rehab. Case discussed with Neurology dr. Flip Jim pending Continue telemonitor HYPERTENSION Allow permissive HTN in the setting of Acute CVA On Lisinopril Continue monitor BP GERD Continue PPI. CKD III Serum creatinine stable at 1.7. Avoid potential nephrotoxins when able. continue monitor DM TYPE 2 Continue holding 70/30 NovoLog during hospital stay. Lantus / NovoLog per protocol Continue monitor BS. DYSLIPIDEMIA Elevated triglycerides above 500 (No sure if pt was fasting for the blood work) LDL at goal 69 Continue atorvastatin. Monitor triglycerides and if stays elevate, please start on a fenofibrate continue monitor VTE PROPHYLAXIS SQ heparin. Ambulate. RESUSCITATION STATUS FULL CODE DISPOSITION Continue tele monitor Echo pending Consider placement PT/OT Medical follow-up with Dr. Noyola. . Consultants: Neuro Current Inpatient Medications: Current Inpatient Medications Medications (Trade) Dose Ordered Sig/Kameron Route Start Time Stop Time Status Last Admin Dose Admin Heparin Sodium (Porcine) (Heparin Sq 5000 Unit/0.5ml) 5,000 unit Q12 SQ 12/11/16 21:00 01/10/17 20:59 12/12/16 08:10 5,000 UNIT Acetaminophen (Tylenol Tab) 650 mg Q4H PRN PO 12/11/16 16:00 01/10/17 15:59 Miscellaneous (Iv Fluids Completed) 1 ea PRN PRN N/A 12/11/16 16:00 12/11/17 15:59 Aspirin (Ecotrin Tab) 81 mg DAILY PO 12/12/16 09:00 01/11/17 08:59 12/12/16 08:11 81 MG Atorvastatin Calcium (Lipitor Tab) 40 mg QAM PO 12/12/16 09:00 01/11/17 08:59 12/12/16 08:11 40 MG Lisinopril (Zestril Tab) 5 mg DAILY PO 12/12/16 09:00 01/11/17 08:59 12/12/16 08:12 5 MG Pantoprazole Sodium (Protonix Tab) 40 mg DAILY PO 12/12/16 09:00 01/11/17 08:59 12/12/16 08:12 40 MG Glucose (Glucose 40% Gel) 15-30 GRAMS 15 GRAMS... UD PRN PO 12/11/16 17:30 01/10/17 17:29 Glucose (Glucose Chew Tab) 4-8 Tablets 4 Tabl... UD PRN PO 12/11/16 17:30 01/10/17 17:29 Dextrose (Dextrose 50% 50ML Syringe) 25-50ML OF 50% DW IV FOR... UD PRN IV 12/11/16 17:30 01/10/17 17:29 Glucagon (Glucagon Inj) 1 mg UD PRN SQ 12/11/16 17:30 01/10/17 17:29 Insulin Glargine (Lantus Solostar Pen) 10 units BID SC 12/11/16 21:00 01/10/17 20:59 12/12/16 08:09 10 UNITS Insulin Aspart (novoLOG ASPART) SLIDING SCALE G... ACHS SC 12/11/16 21:00 01/10/17 20:59 12/12/16 12:41 5 UNITS Miscellaneous Information (Pharmacist Discharge Med Rec Consult) 1 ea UD PRN N/A 12/12/16 00:15 01/11/17 00:14 Clopidogrel Bisulfate (plAVix TAB) 75 mg QAM PO 12/13/16 09:00 01/12/17 08:59
--- NOTE | 2016-12-12 17:47 | CONSULTATION REPORT ---
DATE OF CONSULTATION: 12/12/2016 REFERRING PHYSICIAN: Dr. Stinson. HISTORY OF PRESENT ILLNESS: Adrien is 86 years old, is a patient of Jaz[facility] at the [facility]. He has a history of hypertension, type 2 diabetes, lives at home with his spouse, has had a recent pneumonia according to his son and during this period of time, was a little unsteady in his gait and has had some mild memory impairment over the years. About 3 days ago in this setting, he suddenly developed what the family calls confusion and retrospect is probably a language disturbance. He apparently felt some dizziness and lightheaded before that, but then his speech became slurred. His gait was more unsteady. His blood glucose was running a little high, but normal for him. The family was concerned and brought him into the hospital even though he felt he was doing fine and has been admitted. PAST MEDICAL HISTORY: Other problems include chronic renal disease stage III, type 2 diabetes, dyslipidemia, GERD, and pneumonia, which has been smoldering along since August 2016 and is finally cooled down a bit, and hypertension. PAST SURGICAL HISTORY: He has had an appendectomy. FAMILY HISTORY: Positive for hypertension and prostate cancer in father. Hypertension in the mother. Heart attack in a brother. SOCIAL HISTORY: Reveals him to be a never smoker. He does not consume ethanol. He is and lives with his family. 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 IMMUNIZATIONS: Up-to-date. ALLERGIES: He has no known coated allergies. MEDICATIONS: At home include Aspirin 81 mg a day, atorvastatin, furosemide, insulin, lisinopril and Protonix. REVIEW OF SYSTEMS: Reveals some mild intermittent cognitive impairment over the past year, but nothing major. He has had a shuffling gait over the past 3-4 weeks, which the son attributed to the fact he is recovering from his pneumonia and he has had the acute confusion, which brought him into the hospital. Otherwise, there have been no new issues referable to head, eyes, ears, nose and throat, cardiac, pulmonary, gastrointestinal, genitourinary, or musculoskeletal systems. PHYSICAL EXAMINATION: VITAL SIGNS: On examination last night, his blood pressure was 150/87, pulse was 66, and respirations were 20. GENERAL: He was awake, alert, and oriented in 3 spheres to superficial testing, but at times appeared confused. HEENT: There were no abnormalities on examination of head, eyes, ears, nose and throat. He had upper and lower dentures. NECK: Supple. No carotid bruits were heard. HEART: Had a regular rate and rhythm. LUNGS: Were clear. ABDOMEN: Soft and nontender. EXTREMITIES: Free of edema and had good peripheral pulses. NEUROLOGIC: Today neurologically he is awake and alert, but has a clear aphasia. He perseverates. He has neologisms and paraphasias. He cannot name common objects in the room. He can tell me where he is and he will lock on a word and keep using it as his answers to most questions. I do not see any clear evidence for facial asymmetry, eye movement abnormalities, visual field cuts, facial sensory loss and his speech is sparse and a little dysarthric. He has no drift or pronation sign. There is no cerebellar dysmetria on [id number] and point to point testing. Reflexes are hypoactive to absent at the ankles. Toes are downgoing. No Darek's signs are seen. Strength testing is grossly intact and sensation exam really cannot be performed in detail due to his comprehension and language issues. MRI scan has shown an acute to most subacute deep left thalamic infarction and some chronic older areas of infarction involving the contralateral deep subcortical white matter, but shows I think only age appropriate atrophy and no significant confluent leukoencephalopathy. Carotid duplex is pending. Echocardiogram is pending. Basic laboratory studies show no particular sources of infection or white count elevation, etc. At this point, I think this is a primary small vessel event. He has evidence for similar small vessel issues, which are old. This occurred while on aspirin. I would add Plavix. Continue it for 3 months and then revert either to Plavix alone or back to his old aspirin. We are going to wait for the results of the echo and carotid arteries, but I do not think we are going to see anything that is going to suggest the need for other than antiplatelet anticoagulation here and so far, his EKG shows sinus rhythm, his rhythm has been regular and no atrial fibrillation has been documented. He is going to need speech therapy, occupational therapy, and physical therapy assessments. I do not know if he is really need to be in a rehabilitation hospital and I suspect he could go home with some speech therapy on an outpatient basis. We will be checking back on him tomorrow. I went over the films, the results of all other available testing with the family and I believe they understand a little more now after looking at the images of his brain on the computer. MARBIN
[2016-12-13] VITALS (7 sets, daily range): BP systolic 128–166; BP diastolic 68–79; PULSE 64–71; TEMP 36.3–36.7; O2SAT 92–97
[2016-12-13 06:26] LABS: CALCIUM 8.7 mg/dl (8.5-10.1); CREATININE 1.77 mg/dl (0.60-1.40); POTASSIUM 4.1 mmol/L (3.5-5.1)
[2016-12-13] MEDS: CLOPIDOGREL BISULFATE 75 MG TAB PO SCH (07:43)
[2016-12-13] MEDS: LISINOPRIL 5 MG TAB PO SCH (07:44)
[2016-12-13] MEDS: ATORVASTATIN 40 MG TAB PO SCH (07:44)
[2016-12-13] MEDS: ASPIRIN 81 MG ECTAB PO SCH (07:44)
[2016-12-13] MEDS: PANTOprazole SOD 40 MG TAB PO SCH (07:44)
[2016-12-13] MEDS: INSULIN GLARGINE SOLOSTAR 100 UNITS/ML 3 ML PEN SC SCH ×2 (07:51→21:09)
[2016-12-13] MEDS: HEPARIN SOD 5000 UNIT/0.5 ML CARP SQ SCH ×2 (07:52→21:09)
[2016-12-13] MEDS: INSULIN ASPART 100 UNITS/ML 3 ML PEN SC SCH ×4 (08:30→21:00)
--- NOTE | 2016-12-13 09:11 | ECHOCARDIOGRAM REPORT ---
*NOTICE TO RECEIVING [employer] This information is strictly Confidential and protected under [place] law. [place] law prohibits you from making any further disclosure of this information unless further disclosure is expressly permitted by the written consent of the person to whom it pertains or is authorized by law. A general authorization for the release of medical or other information is not sufficient for this purpose. Hospital accepts no responsibility if the information is made available to any other person, INCLUDING THE PATIENT. Interpretation Summary * Conclusions -- * There is mild concentric left ventricular hypertrophy. * Left ventricular systolic function is normal. * Ejection Fraction = 55-60%. * The left ventricular wall motion is normal. * Moderate to severe valvular aortic stenosis. Procedure Details * A complete two-dimensional transthoracic echocardiogram was performed (2D, M-mode, Doppler and color flow Doppler). * A contrast injection of Definity was performed to improve assessment of LV function. * Contrast was injected into an intravenous site in the left arm. * One vial of Definity ultrasound contrast was diluted in normal saline to a total volume of 10 ml. A total of '2' ml of solution was administered during imaging. * Lot # [id number] of Definity utilized for procedure. * Expiration date . * The attending nurse who injected the contrast agent was Tristan Lin RN. Left Ventricle * The left ventricle is normal in size. * There is mild concentric left ventricular hypertrophy. * Ejection Fraction = 55-60%. * Left ventricular systolic function is normal. * The left ventricular wall motion is normal. Right Ventricle * The right ventricle is normal size. * The right ventricular systolic function is qualitatively normal. Atria * The left atrium is mildly dilated. * Right atrial size is normal. * The interatrial septum is intact with no evidence for an atrial septal defect. Mitral Valve * There is mild mitral annular calcification. * Significant mitral regurgitation is absent. Tricuspid Valve * The tricuspid valve is not well visualized. * There is mild tricuspid regurgitation. Aortic Valve * Moderate to severe valvular aortic stenosis. * Aortic valve area was calculated at 1.0 cm\S\2 using the continuity equation. * There is no significant aortic regurgitation. Great Vessels * The aortic root and proximal ascending aorta are normal sized. Pericardium/Pleural * There is no pericardial effusion. MMode 2D Measurements and Calculations IVSd 1.1 cm IVSs 1.2 cm LVIDd 4.1 cm LVIDs 2.7 cm LVPWd 1.2 cm LVPWs 1.3 cm IVS/LVPW 0.94 FS 33.4 % EDV(Teich) 73.7 ml ESV(Teich) 27.6 ml EF(Teich) 62.5 % EDV(cubed) 68.3 ml ESV(cubed) 20.2 ml EF(cubed) 70.4 % % IVS thick 8.5 % % LVPW thick 7.6 % LV mass(C)d 167.7 grams LV mass(C)dI 82.1 grams/m\S\2 LV mass(C)s 106.5 grams LV mass(C)sI 52.1 grams/m\S\2 SV(Teich) 46.1 ml SI(Teich) 22.6 ml/m\S\2 SV(cubed) 48.1 ml SI(cubed) 23.5 ml/m\S\2 Ao root diam 3.4 cm Ao root area 9.1 cm\S\2 ACS 0.94 cm LA dimension 3.8 cm LA/Ao 1.1 LVOT diam 2.0 cm LVOT area 3.1 cm\S\2 LVAd ap4 24.2 cm\S\2 LVLd ap4 8.2 cm EDV(MOD-sp4) 62.9 ml EDV(sp4-el) 60.3 ml LVAs ap4 14.3 cm\S\2 LVLs ap4 7.2 cm ESV(MOD-sp4) 27.3 ml ESV(sp4-el) 24.0 ml EF(MOD-sp4) 56.5 % EF(sp4-el) 60.1 % LVAd ap2 24.2 cm\S\2 LVLd ap2 7.7 cm EDV(MOD-sp2) 61.5 ml EDV(sp2-el) 64.0 ml LVAs ap2 15.1 cm\S\2 LVLs ap2 6.9 cm ESV(MOD-sp2) 27.8 ml ESV(sp2-el) 28.0 ml EF(MOD-sp2) 54.8 % EF(sp2-el) 56.3 % LVLd %diff -6.51 % EDV(MOD-bp) 62.6 ml LVLs %diff -4.29 % ESV(MOD-bp) 26.9 ml EF(MOD-bp) 57.1 % SV(MOD-sp4) 35.6 ml SI(MOD-sp4) 17.4 ml/m\S\2 SV(MOD-sp2) 33.7 ml SI(MOD-sp2) 16.5 ml/m\S\2 SV(MOD-bp) 35.7 ml SI(MOD-bp) 17.5 ml/m\S\2 SV(sp4-el) 36.2 ml SI(sp4-el) 17.7 ml/m\S\2 SV(sp2-el) 36.0 ml SI(sp2-el) 17.6 ml/m\S\2 Doppler Measurements and Calculations MV E max vin 94.9 cm/sec MV A max vin 83.6 cm/sec MV E/A 1.1 MV dec time 0.33 sec Ao V2 max 289.5 cm/sec Ao max PG 33.5 mmHg Ao max PG (full) 29.8 mmHg Ao V2 mean 175.1 cm/sec Ao mean PG 14.4 mmHg Ao mean PG (full) 12.9 mmHg Ao V2 VTI 57.0 cm LINCOLN(I,A) 1.2 cm\S\2 LINCOLN(I,D) 1.2 cm\S\2 LINCOLN(V,A) 1.0 cm\S\2 LINCOLN(V,D) 1.0 cm\S\2 LV V1 max PG 3.7 mmHg LV V1 mean PG 1.5 mmHg LV V1 max 95.7 cm/sec LV V1 mean 55.4 cm/sec LV V1 VTI 21.8 cm SV(Ao) 518.1 ml SI(Ao) 253.6 ml/m\S\2 SV(LVOT) 67.3 ml SI(LVOT) 32.9 ml/m\S\2 PA V2 max 91.0 cm/sec PA max PG 3.3 mmHg TR max vin 263.7 cm/sec
--- NOTE | 2016-12-13 14:42 | Neurology Progress Notes ---
Neurology Progress Note Date of Service Dec 13, 2016. Tino Jurado is an 86 year old male who has a PMH HTN, DM II. He presented with dizzy lightheaded feeling and then the next day some slurred speech, confusion and unsteady gait. He lives in [facility] and drives, does yard work and gardening. denies CP, SOB, abdominal pain, weakness, numbness tingling. he is somewhat confused but knows he is in a hospital. Nursing reports he has been up walking to the bathroom with minimal assistance. . Objective Date Time Temp Pulse Resp B/P (MAP) Pulse Ox O2 Delivery O2 Flow Rate FiO2 12/13/16 12:00 Room Air 12/13/16 11:06 36.3 70 18 128/76 (93) 95 Room Air 12/13/16 09:58 94 Room Air 12/13/16 09:03 36.6 69 17 134/68 (90) 94 Room Air 12/13/16 08:00 Room Air 12/13/16 07:20 36.6 64 16 148/71 (96) 92 Room Air 12/13/16 04:07 Room Air 12/13/16 03:06 36.6 67 19 149/69 (95) 96 Room Air 12/12/16 23:59 Room Air 12/12/16 22:42 36.7 62 19 134/55 (81) 92 Room Air 12/12/16 20:00 Room Air 12/12/16 19:19 36.5 65 18 155/87 (109) 96 Room Air 12/12/16 16:00 Room Air 12/12/16 15:24 36.3 63 18 149/76 (100) 93 Room Air Last 24 Hours Test 12/12/16 20:51 12/13/16 05:23 12/13/16 06:52 12/13/16 11:08 Bedside Glucose 173 mg/dl 151 mg/dl 268 mg/dl Sodium Level 138 mmol/L Potassium Level 4.1 mmol/L Chloride Level 104 mmol/L Carbon Dioxide Level 26 mmol/L Anion Gap 8.0 mmol/L Blood Urea Nitrogen 25 mg/dl Creatinine 1.77 mg/dl Est Creatinine Clear Calc Drug Dose 33.0 ml/min Estimated GFR () 39.4 Estimated GFR (Non- 34.0 BUN/Creatinine Ratio 14.0 Random Glucose 175 mg/dl Calcium Level 8.7 mg/dl Imaging: MRI brain - Acute left thalamic infarct. TTE- n There is mild concentric left ventricular hypertrophy. n Left ventricular systolic function is normal. n Ejection Fraction = 55-60%. n The left ventricular wall motion is normal. n Moderate to severe valvular aortic stenosis. NO ASD carotid doppler- No hemodynamically significant stenosis seen within the bilateral common or internal carotid arteries. Mild right external carotid artery stenosis. Exam: Physical Exam: Constitutional: appearance nourished, healthy and normal Ears, Nose, Mouth and Throat: mucous membranes moist, no injection and skin normal, eyes normal Cardiovascular: normal S-1 and S-2 and regular rate and rhythm Respiratory: clear to auscultation (CTA) and no rales, rhonchi or wheeze Musculoskeletal: no peripheral edema and good distal pulses Skin: no stigmata of neurocutaneous disease noted and normal and intact Eyes: extraocular muscles intact (EOMI) and pupils equal, round and reactive to light (PERRL) NEUROLOGIC EXAMINATION: Mental status: Alert and interactive Oriented to person, does not know this is [facility], unsure about need for rehab, knows he had a stroke Speech fluent with no evidence of aphasia Cranial Nerves smile eye brow raise symmetric, tongue midline Gait/Stance: Posture normal. lying in bed Motor: Negative for pronator drift of out stretched arms with eyes closed. Strength: biceps triceps hand mixing machine tender cork gasket 5/5 bilaterally ,hip flex plantar flex ext 5/5 bilaterally Current Inpatient Medications Medications (Trade) Dose Ordered Sig/Kameron Route Start Time Stop Time Status Last Admin Dose Admin Heparin Sodium (Porcine) (Heparin Sq 5000 Unit/0.5ml) 5,000 unit Q12 SQ 12/11/16 21:00 01/10/17 20:59 12/13/16 07:52 5,000 UNIT Acetaminophen (Tylenol Tab) 650 mg Q4H PRN PO 12/11/16 16:00 01/10/17 15:59 Miscellaneous (Iv Fluids Completed) 1 ea PRN PRN N/A 12/11/16 16:00 12/11/17 15:59 Aspirin (Ecotrin Tab) 81 mg DAILY PO 12/12/16 09:00 01/11/17 08:59 12/13/16 07:44 81 MG Atorvastatin Calcium (Lipitor Tab) 40 mg QAM PO 12/12/16 09:00 01/11/17 08:59 12/13/16 07:44 40 MG Lisinopril (Zestril Tab) 5 mg DAILY PO 12/12/16 09:00 01/11/17 08:59 12/13/16 07:44 5 MG Pantoprazole Sodium (Protonix Tab) 40 mg DAILY PO 12/12/16 09:00 01/11/17 08:59 12/13/16 07:44 40 MG Glucose (Glucose 40% Gel) 15-30 GRAMS 15 GRAMS... UD PRN PO 12/11/16 17:30 01/10/17 17:29 Glucose (Glucose Chew Tab) 4-8 Tablets 4 Tabl... UD PRN PO 12/11/16 17:30 01/10/17 17:29 Dextrose (Dextrose 50% 50ML Syringe) 25-50ML OF 50% DW IV FOR... UD PRN IV 12/11/16 17:30 01/10/17 17:29 Glucagon (Glucagon Inj) 1 mg UD PRN SQ 12/11/16 17:30 01/10/17 17:29 Insulin Glargine (Lantus Solostar Pen) 10 units BID SC 12/11/16 21:00 01/10/17 20:59 12/13/16 07:51 10 UNITS Insulin Aspart (novoLOG ASPART) SLIDING SCALE G... ACHS SC 12/11/16 21:00 01/10/17 20:59 12/13/16 13:34 6 UNITS Miscellaneous Information (Pharmacist Discharge Med Rec Consult) 1 ea UD PRN N/A 12/12/16 00:15 01/11/17 00:14 Clopidogrel Bisulfate (plAVix TAB) 75 mg QAM PO 12/13/16 09:00 01/12/17 08:59 12/13/16 07:43 75 MG Impression 86 year old male s/p L thalamic infarct Plan 1, MRI with left thalamic stroke 2. HTN, DL, DM optimize 3. TTE- severe aortic stenosis 4. PT/OT/speech for discharge needs 5. Plavix 75 mg and aspirin 81 mg x 3 months and then plavix for a lifetime 6. fall precaution 7. referral made to HS follow up with neurology in 3-4 weeks Shaina Barfield PAC schedule or after rehab stay I have seen and discussed above patient with Dr Sebastian Castelan, neurology Patient seen with family examined and reviewed with Shaina Rodríguez He is still aphasic with hesitant speech workd finding and no paresis and is better than yesterday and apparently [facility] We do not have evidence for an embolic source and this looks and acts like a primary small vessel event Rx with dual antiplatelet as per the above recommendations follow up in neuro in about four weeks after discharge from rehab Sebastian Castelan MD
--- NOTE | 2016-12-13 17:10 | ELECTROENCEPHALOGRAPH REPORT ---
ELECTROENCEPHALOGRAM REQUESTING: Dr. Castelan. CLINICAL DIAGNOSIS: Deep left hemispheric cerebrovascular accident of subacute type with episodic confusion. ELECTROENCEPHALOGRAM DIAGNOSIS: Mildly diffusely abnormal electroencephalogram during wakefulness. DESCRIPTION OF TRACING: This EEG was done as a bedside recording. A simultaneous video analysis of patient movement and behavior was obtained. Photic stimulation was performed. Hyperventilation was not. Under these conditions, there is evidence for a background rhythm in the upper theta range of about 7-8 Hz of maximum frequency and about 30 microvolts of maximum amplitude. This is maximum posterior head regions bilaterally symmetrical. Polymorphic mid frequency to lower frequency theta activity of modest voltage intermixed with some waveforms in the delta range of isolated type seen over all head regions without clear focal or regional predominance other than the fact they are a little more prominent in the central regions in a symmetrical fashion. Anterior head region maximum bilaterally symmetrical low voltage fast activity in the beta range is present. At no time during the waking tracing is there evidence for potentially epileptogenic activity in the form of polyspike or spike wave bursts, focal sharp waves or focal spikes. Photic stimulation provoked some modest driving response without a photomyogenic or photoparoxysmal component. INTERPRETATION: This electroencephalogram reveals evidence for mild nonspecific generalized abnormalities which suggest the presence of a low grade encephalopathy without focal or lateralizing features and without potentially epileptogenic activity.
--- NOTE | 2016-12-13 18:32 | Progress Note ---
Medicine Progress Note Date & Time of Visit: Dec 13, 2016 at 18:22. Subjective Pt was seen and examined Sitting in chair with no distress Pt said that early today he was having tenderness around the left side of his ribs cage Son said that he does have that all the time due to gas Pt said that now he does not have any pain he said that he is still having a hard to time to express his thoughts His speech slightly improves Denies any chest pain, palpitation, dizziness and sob Objective Last 8 Hrs Date Time Temp Pulse Resp B/P (MAP) Pulse Ox O2 Delivery O2 Flow Rate FiO2 12/13/16 16:00 Room Air 12/13/16 15:05 36.4 71 19 166/79 (108) 97 12/13/16 12:00 Room Air 12/13/16 11:06 36.3 70 18 128/76 (93) 95 Room Air Physical Exam: General- No acute distress Head- atraumatic Eyes- PERRL, EOMI ENT- oropharynx clear Neck- supple, no JVD Lungs- clear to auscultation Heart- regular rhythm; no murmur Abdomen- normal bowel sounds, soft Extremities- no calf tenderness Neuro- alert, slow mentation, PERRL, EOMI; no facial palsy, mild dysarthria, motor intact Skin- warm & dry Laboratory Results: Last 24 Hours Test 12/12/16 20:51 12/13/16 05:23 12/13/16 06:52 12/13/16 11:08 Bedside Glucose 173 mg/dl 151 mg/dl 268 mg/dl Sodium Level 138 mmol/L Potassium Level 4.1 mmol/L Chloride Level 104 mmol/L Carbon Dioxide Level 26 mmol/L Anion Gap 8.0 mmol/L Blood Urea Nitrogen 25 mg/dl Creatinine 1.77 mg/dl Est Creatinine Clear Calc Drug Dose 33.0 ml/min Estimated GFR () 39.4 Estimated GFR (Non- 34.0 BUN/Creatinine Ratio 14.0 Random Glucose 175 mg/dl Calcium Level 8.7 mg/dl Test 12/13/16 16:28 Bedside Glucose 177 mg/dl Assessment & Plan ACUTE LEFT THALAMIC INFARCT Family observes lightheadedness and dizziness over past 2 days then becomes more confusion and dysarthric speech yesterday CT head showed no hemorrhage, mass effect, or evidence of acute territorial ischemia MRI of the head showed acute left thalamic infarct Continue Neuro checks. On ASA. 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 As per PT notes, pt is at fall risk due to lack of safety awareness recommend 24 hour care at home due to pt confusion or SNF to continue rehab. Case discussed with Neurology dr. Castelan No arrhythmia on tele monitor Continue Plavix and aspirin for 3 months, then Plavix for lifetime Follow up with neurology in 3 to 4 weeks ECHO showed There is mild concentric left ventricular hypertrophy. Left ventricular systolic function is normal. Ejection Fraction = 55-60%. The left ventricular wall motion is normal. 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 EEG showed reveals evidence for mild nonspecific generalized abnormalities which suggest the presence of a low grade encephalopathy without focal or lateralizing features and without potentially epileptogenic activity. HYPERTENSION Allow permissive HTN in the setting of Acute CVA On Lisinopril Continue monitor BP GERD Continue PPI. CKD III Serum creatinine stable at 1.77 Avoid potential nephrotoxins when able. continue monitor DM TYPE 2 Continue holding 70/30 NovoLog during hospital stay. Lantus / NovoLog per protocol Continue monitor BS. DYSLIPIDEMIA Elevated triglycerides above 500 (No sure if pt was fasting for the blood work) LDL at goal 69 Continue atorvastatin. Monitor triglycerides and if stays elevate, please start on a fenofibrate continue monitor VTE PROPHYLAXIS SQ heparin. Ambulate. RESUSCITATION STATUS FULL CODE DISPOSITION Continue tele monitor Consider placement PT/OT Medical follow-up with Dr. Noyola. . Consultants: Neuro Current Inpatient Medications: Current Inpatient Medications Medications (Trade) Dose Ordered Sig/Kameron Route Start Time Stop Time Status Last Admin Dose Admin Heparin Sodium (Porcine) (Heparin Sq 5000 Unit/0.5ml) 5,000 unit Q12 SQ 12/11/16 21:00 01/10/17 20:59 12/13/16 07:52 5,000 UNIT Acetaminophen (Tylenol Tab) 650 mg Q4H PRN PO 12/11/16 16:00 01/10/17 15:59 Miscellaneous (Iv Fluids Completed) 1 ea PRN PRN N/A 12/11/16 16:00 12/11/17 15:59 Aspirin (Ecotrin Tab) 81 mg DAILY PO 12/12/16 09:00 01/11/17 08:59 12/13/16 07:44 81 MG Atorvastatin Calcium (Lipitor Tab) 40 mg QAM PO 12/12/16 09:00 01/11/17 08:59 12/13/16 07:44 40 MG Lisinopril (Zestril Tab) 5 mg DAILY PO 12/12/16 09:00 01/11/17 08:59 12/13/16 07:44 5 MG Pantoprazole Sodium (Protonix Tab) 40 mg DAILY PO 12/12/16 09:00 01/11/17 08:59 12/13/16 07:44 40 MG Glucose (Glucose 40% Gel) 15-30 GRAMS 15 GRAMS... UD PRN PO 12/11/16 17:30 01/10/17 17:29 Glucose (Glucose Chew Tab) 4-8 Tablets 4 Tabl... UD PRN PO 12/11/16 17:30 01/10/17 17:29 Dextrose (Dextrose 50% 50ML Syringe) 25-50ML OF 50% DW IV FOR... UD PRN IV 12/11/16 17:30 01/10/17 17:29 Glucagon (Glucagon Inj) 1 mg UD PRN SQ 12/11/16 17:30 01/10/17 17:29 Insulin Glargine (Lantus Solostar Pen) 10 units BID SC 12/11/16 21:00 01/10/17 20:59 12/13/16 07:51 10 UNITS Insulin Aspart (novoLOG ASPART) SLIDING SCALE G... ACHS SC 12/11/16 21:00 01/10/17 20:59 12/13/16 17:26 4 UNITS Miscellaneous Information (Pharmacist Discharge Med Rec Consult) 1 ea UD PRN N/A 12/12/16 00:15 01/11/17 00:14 Clopidogrel Bisulfate (plAVix TAB) 75 mg QAM PO 12/13/16 09:00 01/12/17 08:59 12/13/16 07:43 75 MG
[2016-12-14] VITALS (9 sets, daily range): BP systolic 133–164; BP diastolic 68–94; PULSE 66–76; TEMP 36.3–36.8; O2SAT 94–96
[2016-12-14] MEDS: PANTOprazole SOD 40 MG TAB PO SCH (07:20)
[2016-12-14] MEDS: LISINOPRIL 5 MG TAB PO SCH (07:20)
[2016-12-14] MEDS: CLOPIDOGREL BISULFATE 75 MG TAB PO SCH (07:20)
[2016-12-14] MEDS: ASPIRIN 81 MG ECTAB PO SCH (07:20)
[2016-12-14] MEDS: ATORVASTATIN 40 MG TAB PO SCH (07:20)
[2016-12-14] MEDS: HEPARIN SOD 5000 UNIT/0.5 ML CARP SQ SCH ×2 (07:23→20:24)
[2016-12-14] MEDS: INSULIN GLARGINE SOLOSTAR 100 UNITS/ML 3 ML PEN SC SCH ×2 (07:24→20:24)
[2016-12-14] MEDS: INSULIN ASPART 100 UNITS/ML 3 ML PEN SC SCH ×4 (08:48→20:23)
--- NOTE | 2016-12-14 11:42 | Progress Note ---
Medicine Progress Note Date & Time of Visit: Dec 14, 2016 at 11:26. Subjective Pt was seen and examined Lying in bed with no distress Pt said that he slept well last night Denies any chest pain, palpitation, dizziness and SOB Objective Last 8 Hrs Date Time Temp Pulse Resp B/P (MAP) Pulse Ox O2 Delivery O2 Flow Rate FiO2 12/14/16 09:29 Room Air 12/14/16 08:00 Room Air 12/14/16 07:47 36.4 76 16 164/94 (117) 94 12/14/16 04:05 36.4 67 20 137/77 (97) 96 Room Air 12/14/16 04:00 96 Room Air Physical Exam: General- No acute distress Head- atraumatic Eyes- PERRL, EOMI ENT- oropharynx clear Neck- supple, no JVD Lungs- clear to auscultation Heart- regular rhythm; no murmur Abdomen- normal bowel sounds, soft Extremities- no calf tenderness Neuro- alert, slow mentation, PERRL, EOMI; no facial palsy, mild dysarthria, motor intact Skin- warm & dry Laboratory Results: Last 24 Hours Test 12/13/16 16:28 12/13/16 21:05 12/14/16 06:45 12/14/16 10:57 Bedside Glucose 177 mg/dl 151 mg/dl 159 mg/dl 191 mg/dl Assessment & Plan ACUTE LEFT THALAMIC INFARCT Family observes lightheadedness and dizziness over past 2 days then becomes more confusion and dysarthric speech yesterday CT head showed no hemorrhage, mass effect, or evidence of acute territorial ischemia MRI of the head showed acute left thalamic infarct Continue Neuro checks. On ASA. 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 As per PT notes, pt is at fall risk due to lack of safety awareness recommend 24 hour care at home due to pt confusion or SNF to continue rehab. Case discussed with Neurology dr. Castelan No arrhythmia on tele monitor Continue Plavix and aspirin for 3 months, then Plavix for lifetime Follow up with neurology in 3 to 4 weeks after discharge from rehab ECHO showed There is mild concentric left ventricular hypertrophy. Left ventricular systolic function is normal. Ejection Fraction = 55-60%. The left ventricular wall motion is normal. 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 EEG showed reveals evidence for mild nonspecific generalized abnormalities which suggest the presence of a low grade encephalopathy without focal or lateralizing features and without potentially epileptogenic activity. HYPERTENSION Allow permissive HTN in the setting of Acute CVA On Lisinopril Continue monitor BP GERD Continue PPI. CKD III Serum creatinine stable at 1.77 Avoid potential nephrotoxins when able. continue monitor DM TYPE 2 Continue holding 70/30 NovoLog during hospital stay. Lantus / NovoLog per protocol Continue monitor BS. DYSLIPIDEMIA Elevated triglycerides above 500 (No sure if pt was fasting for the blood work) LDL at goal 69 Continue atorvastatin. Monitor triglycerides and if stays elevate, please start on a fenofibrate continue monitor VTE PROPHYLAXIS SQ heparin. Ambulate. RESUSCITATION STATUS FULL CODE DISPOSITION Continue tele monitor Consider placement Continue PT/OT Medical follow-up with Dr. Noyola. . Consultants: Neuro Current Inpatient Medications: Current Inpatient Medications Medications (Trade) Dose Ordered Sig/Kameron Route Start Time Stop Time Status Last Admin Dose Admin Heparin Sodium (Porcine) (Heparin Sq 5000 Unit/0.5ml) 5,000 unit Q12 SQ 12/11/16 21:00 01/10/17 20:59 12/14/16 07:23 5,000 UNIT Acetaminophen (Tylenol Tab) 650 mg Q4H PRN PO 12/11/16 16:00 01/10/17 15:59 Miscellaneous (Iv Fluids Completed) 1 ea PRN PRN N/A 12/11/16 16:00 12/11/17 15:59 Aspirin (Ecotrin Tab) 81 mg DAILY PO 12/12/16 09:00 01/11/17 08:59 12/14/16 07:20 81 MG Atorvastatin Calcium (Lipitor Tab) 40 mg QAM PO 12/12/16 09:00 01/11/17 08:59 12/14/16 07:20 40 MG Lisinopril (Zestril Tab) 5 mg DAILY PO 12/12/16 09:00 01/11/17 08:59 12/14/16 07:20 5 MG Pantoprazole Sodium (Protonix Tab) 40 mg DAILY PO 12/12/16 09:00 01/11/17 08:59 12/14/16 07:20 40 MG Glucose (Glucose 40% Gel) 15-30 GRAMS 15 GRAMS... UD PRN PO 12/11/16 17:30 01/10/17 17:29 Glucose (Glucose Chew Tab) 4-8 Tablets 4 Tabl... UD PRN PO 12/11/16 17:30 01/10/17 17:29 Dextrose (Dextrose 50% 50ML Syringe) 25-50ML OF 50% DW IV FOR... UD PRN IV 12/11/16 17:30 01/10/17 17:29 Glucagon (Glucagon Inj) 1 mg UD PRN SQ 12/11/16 17:30 01/10/17 17:29 Insulin Glargine (Lantus Solostar Pen) 10 units BID SC 12/11/16 21:00 01/10/17 20:59 12/14/16 07:24 10 UNITS Insulin Aspart (novoLOG ASPART) SLIDING SCALE G... ACHS SC 12/11/16 21:00 01/10/17 20:59 12/14/16 08:48 4 UNITS Miscellaneous Information (Pharmacist Discharge Med Rec Consult) 1 ea UD PRN N/A 12/12/16 00:15 01/11/17 00:14 Clopidogrel Bisulfate (plAVix TAB) 75 mg QAM PO 12/13/16 09:00 01/12/17 08:59 12/14/16 07:20 75 MG
--- NOTE | 2016-12-14 14:31 | Neurology Progress Notes ---
Neurology Progress Note Date of Service Dec 14, 2016. Tino Jurado is an 86 year old male who has a PMH HTN, DM II. He presented with dizzy lightheaded feeling and then the next day some slurred speech, confusion and unsteady gait. He lives in [facility] and drives, does yard work and gardening. denies CP, SOB, abdominal pain, weakness, numbness tingling. he is somewhat confused but knows he is in a hospital. Nursing reports he has been up walking to the bathroom with minimal assistance. He us waiting to hear which facility will accept him for rehab. denies falls, CP , SOB, abdominal pain, weakness, numbness tingling, N, V. Objective Date Time Temp Pulse Resp B/P (MAP) Pulse Ox O2 Delivery O2 Flow Rate FiO2 12/14/16 12:00 Room Air 12/14/16 11:32 36.4 73 14 156/74 (101) 96 Room Air 12/14/16 09:29 Room Air 12/14/16 08:00 Room Air 12/14/16 07:47 36.4 76 16 164/94 (117) 94 12/14/16 04:05 36.4 67 20 137/77 (97) 96 Room Air 12/14/16 04:00 96 Room Air 12/14/16 00:00 96 Room Air 12/14/16 00:00 36.6 69 137/72 (93) 96 Room Air 12/13/16 21:00 36.7 65 18 134/70 (91) 96 Room Air 12/13/16 20:00 Room Air 12/13/16 16:00 Room Air 12/13/16 15:05 36.4 71 19 166/79 (108) 97 Last 24 Hours Test 12/13/16 16:28 12/13/16 21:05 12/14/16 06:45 12/14/16 10:57 Bedside Glucose 177 mg/dl 151 mg/dl 159 mg/dl 191 mg/dl Imaging: EEG- This electroencephalogram reveals evidence for mild nonspecific generalized abnormalities which suggest the presence of a low grade encephalopathy without focal or lateralizing features and without potentially epileptogenic activity. Exam: Physical Exam: Constitutional: appearance nourished, healthy and normal Ears, Nose, Mouth and Throat: mucous membranes moist, no injection and skin normal, eyes normal Cardiovascular: normal S-1 and S-2 and regular rate and rhythm Respiratory: clear to auscultation (CTA) and no rales, rhonchi or wheeze Musculoskeletal: no peripheral edema Skin: no stigmata of neurocutaneous disease noted and normal and intact Eyes: extraocular muscles intact (EOMI) and pupils equal, round and reactive to light (PERRL) NEUROLOGIC EXAMINATION: Mental status: Alert and interactive Oriented hospital , names cup, thumb says it is 1. Oriented to person Speech fluent with no evidence of aphasia Cranial Nerves smile eye brow raise symmetric, tongue midline Sensory: no sensory deficits Coordination: finger to nose with no bipass or tremor, no pronator drift Gait/Stance: Posture lying in bed Motor: Negative for pronator drift of out stretched arms with eyes closed. Strength: hand gearman biceps triceps 5/5 bilaterally, hip flex plantar flex ext 5/5 bilaterally Current Inpatient Medications Medications (Trade) Dose Ordered Sig/Kameron Route Start Time Stop Time Status Last Admin Dose Admin Heparin Sodium (Porcine) (Heparin Sq 5000 Unit/0.5ml) 5,000 unit Q12 SQ 12/11/16 21:00 01/10/17 20:59 12/14/16 07:23 5,000 UNIT Acetaminophen (Tylenol Tab) 650 mg Q4H PRN PO 12/11/16 16:00 01/10/17 15:59 Miscellaneous (Iv Fluids Completed) 1 ea PRN PRN N/A 12/11/16 16:00 12/11/17 15:59 Aspirin (Ecotrin Tab) 81 mg DAILY PO 12/12/16 09:00 01/11/17 08:59 12/14/16 07:20 81 MG Atorvastatin Calcium (Lipitor Tab) 40 mg QAM PO 12/12/16 09:00 01/11/17 08:59 12/14/16 07:20 40 MG Lisinopril (Zestril Tab) 5 mg DAILY PO 12/12/16 09:00 01/11/17 08:59 12/14/16 07:20 5 MG Pantoprazole Sodium (Protonix Tab) 40 mg DAILY PO 12/12/16 09:00 01/11/17 08:59 12/14/16 07:20 40 MG Glucose (Glucose 40% Gel) 15-30 GRAMS 15 GRAMS... UD PRN PO 12/11/16 17:30 01/10/17 17:29 Glucose (Glucose Chew Tab) 4-8 Tablets 4 Tabl... UD PRN PO 12/11/16 17:30 01/10/17 17:29 Dextrose (Dextrose 50% 50ML Syringe) 25-50ML OF 50% DW IV FOR... UD PRN IV 12/11/16 17:30 01/10/17 17:29 Glucagon (Glucagon Inj) 1 mg UD PRN SQ 12/11/16 17:30 01/10/17 17:29 Insulin Glargine (Lantus Solostar Pen) 10 units BID SC 12/11/16 21:00 01/10/17 20:59 12/14/16 07:24 10 UNITS Insulin Aspart (novoLOG ASPART) SLIDING SCALE G... ACHS SC 12/11/16 21:00 01/10/17 20:59 12/14/16 12:36 4 UNITS Miscellaneous Information (Pharmacist Discharge Med Rec Consult) 1 ea UD PRN N/A 12/12/16 00:15 01/11/17 00:14 Clopidogrel Bisulfate (plAVix TAB) 75 mg QAM PO 12/13/16 09:00 01/12/17 08:59 12/14/16 07:20 75 MG Impression 86 year old male s/p L thalamic infarct Plan 1, MRI with left thalamic stroke 2. HTN, DL, DM optimize 3. TTE- severe aortic stenosis 4. PT/OT/speech for discharge needs 5. Plavix 75 mg and aspirin 81 mg x 3 months and then plavix for a lifetime 6. fall precaution 7. referral made to HS follow up with neurology in 3-4 weeks Shaina Barfield PAC schedule or after rehab stay I have seen and discussed above patient with Dr Sebastian Castelan, neurology I have sen this man wit Shaina Barfield and agree with the above He is still aphasic and likely a bit confused due to the thalamic infarct but is better and improving daily He is on asa and plavix disposition is pending but will likely involve some rehab efforts at an as yet indeterminate location We will sign off the case for now with plans for neurological follow up as outlined above Sebastian Castelan MD
[2016-12-15] VITALS (7 sets, daily range): BP systolic 109–135; BP diastolic 51–74; PULSE 65–68; TEMP 36.3–36.5; O2SAT 94–95
[2016-12-15] MEDS: ASPIRIN 81 MG ECTAB PO SCH (08:15)
[2016-12-15] MEDS: ATORVASTATIN 40 MG TAB PO SCH (08:18)
[2016-12-15] MEDS: CLOPIDOGREL BISULFATE 75 MG TAB PO SCH (08:18)
[2016-12-15] MEDS: PANTOprazole SOD 40 MG TAB PO SCH (08:18)
[2016-12-15] MEDS: INSULIN ASPART 100 UNITS/ML 3 ML PEN SC SCH ×2 (08:22→12:00)
[2016-12-15] MEDS: INSULIN GLARGINE SOLOSTAR 100 UNITS/ML 3 ML PEN SC SCH (08:23)
[2016-12-15] MEDS: HEPARIN SOD 5000 UNIT/0.5 ML CARP SQ SCH (08:23)
[2016-12-15] MEDS: LISINOPRIL 5 MG TAB PO SCH (08:24)
--- NOTE | 2016-12-15 10:23 | Clinical Documentation Query ---
AKANKSHA Sloan : CLINICAL DOCUMENTATION QUERY Patient presented with lightheadedness, dizziness, with increased confusion beginning the day prior to admission. MRI of the brain demonstrated an acute left thalamic infarct. In your clinical opinion is this patient being managed for: ( x ) Encephalopathy secondary to acute left thalamic infarct ( ) Not Agree ( ) Other explanation of clinical findings (Please Explain) ( ) Unable to determine (Please Define) ( ) Need to Discuss The medical record reflects the following clinical findings, treatment, and risk factors. Clinical Indicators: As above Treatment: Radiology, Neurologic consultation, PT/OT/UX DEVELOPER evals, telemetry, echocardiogram, neuro checks, ASA, Plavix Risk Factors: Age, DM type 2, dyslipidemia Please clarify and document your clinical opinion in the progress notes and discharge summary. Terms such as "probable", "suspected", "likely", "questionable", "possible", or "still to be ruled out" are acceptable. IF IN AGREEMENT, YOU MUST DOCUMENT ABOVE DIAGNOSTIC STATEMENT IN DAILY PROGRESS NOTES AND DISCHARGE SUMMARY. This document is not part of the patient's record. Thank You, Garfield Giordano, RN [phone]
[2016-12-15] MEDS ORDERED: PLV75 PO ×2 (11:33→11:56)
[2016-12-15] MEDS ORDERED: LPT40 PO (11:33)
--- NOTE | 2016-12-15 11:37 | Discharge Instructions ---
Discharge Instructions Date of Service Dec 15, 2016. Admission Reason for Admission: Altered Mental Status Discharge Discharge Diagnosis / Problem: ACUTE LEFT THALAMIC STROKE Discharge Goals Goal(s): Improve function, Increase independence, Diagnostic testing, Therapeutic intervention Activity Recommendations Activity Level: Assistance Required Therapies: Physical Therapy, Occupational Therapy, Speech Therapy . Additional Information Patient informed of condition: Yes Advance Directives: No DNR: No Level of Care: Acute Rehab Communicable Disease: No Prognosis: Stable Mcgregor Catheter: No Instructions / Follow-Up Instructions / Follow-Up FOLLOW UP WITH FAMILY PHYSICIAN AFTER DISCHARGE FORM REHAB FOLLOW UP WITH NEUROLOGY SAMUEL GORDON PA-C IN 2-4 WEEKS AFTER DISCHARGE FORM REHAB CONTINUE ASPIRIN AND PLAVIX FOR 3 MONTHS ( TAKE WITH FOOD ) THEN CONTINUE WITH PLAVIX 75 MG DAILY INDEFINITELY PLEASE NOTIFY PHYSICIAN WITH ANY EVIDENCE OF DARK STOOL , INCREASED BRUISING , NOSE BLEED NEED TO HAVE REPEAT FASTING LIPID PANEL CHECKED IN 6 MONTHS Risk Factors for Stroke: You can reduce your chances of stroke by working with your medical provider to adopt a healthy lifestyle. Some specific ways to lower your chance of stroke are: * If you are a smoker, now is the time to stop smoking cigarettes * If you are diabetic, improve the control of your blood sugars * Avoid excessive amounts of alcohol * Control high blood pressure * Lose weight if you are overweight * Be sure to lead an active lifestyle * Eat a healthy diet low in salt, cholesterol and fat You should know about other risk factors for stroke that you are unable to control. These include: * Age 55 years or older * Male gender * Certain racial groups: , or / * Family History of Stroke, Mini stroke or Heart Attack * Sickle Cell Disease Follow Up: It is important for you to keep your follow up appointments with your medical provider. FOLLOW UP WITH FAMILY PHYSICIAN AFTER DISCHARGE FORM REHAB FOLLOW UP WITH NEUROLOGY SAMUEL WORLEY IN 2-4 WEEKS AFTER DISCHARGE FORM REHAB Current Hospital Diet Patient's current hospital diet: AHA Diet (Heart Healthy), Diabetes Type 2 Diet Discharge Diet Recommended Diet: AHA Diet (Heart Healthy), Diabetes Type 2 Diet Pending Studies Studies pending at discharge: no Laboratory Results Lipid Panel Test 12/12/16 06:19 Range/Units Triglycerides Level 511 H 0-150 mg/dl Cholesterol Level 160 0-200 mg/dl HDL Cholesterol 34 mg/dl Cholesterol/HDL Ratio 4.7 LDL Cholesterol, Calculated mg/dl Medical Emergencies . Who to Call and When: Medical Emergencies: If at any time you feel your situation is an emergency, please call 911 immediately. . Non-Emergent Contact Non-Emergency issues call your: Primary Care Provider . . "Provider Documentation" section prepared by Kate Collins. . Core Measure Problem Core Measures: Stroke Stroke Core Measures Reason no t-PA for Stroke: Treatment not indicated Reason no antithrom by day 2: Treatment provided - N/A Reason no antithrom at D/C: Treatment provided - N/A Reason no statin at D/C: Treatment provided - N/A Reason no anticoag w/a fib: Treatment not indicated
--- NOTE | 2016-12-15 11:41 | Progress Note ---
Internal Med Progress Note Date of Service: Dec 15, 2016. Provider Documentation: SUBJECTIVE: sitting up on chair , speech is fluent still has some confusion , can not tell date , which hospital no weakness or paresthesia stable to be transferred to [facility] today OBJECTIVE: Vital Signs-as noted below Exam: General- No acute distress Head- atraumatic Eyes- PERRL, EOMI ENT- oropharynx clear Neck- supple, no JVD Lungs- clear to auscultation Heart- regular rhythm; no murmur Abdomen- normal bowel sounds, soft Extremities- no calf tenderness Neuro- alert, slow mentation, PERRL, EOMI; no facial palsy, speech fluent , motor intact Skin- warm & dry Lab data as noted below. ASSESSMENT & PLAN: CONFUSION /ENCEPHALOPATHY : Family observes lightheadedness and dizziness over past 2 days then becomes more confusion and dysarthric speech yesterday possible encephalopathy due to acute cva MRI of the head showed acute left thalamic infarct mental status improved to approx baseline pt will need continued rehab for acute CVA referral made to [facility] ACUTE LEFT THALAMIC INFARCT presented with confusion /dysarthria CT head showed no hemorrhage, mass effect, or evidence of acute territorial ischemia MRI of the head showed acute left thalamic infarct appreciate input form neurology EEG negative for any seizure activity pt will continue with dual antiplatelets ASA/Plavix for at least 3 months than cont on Aspirin 81 mg daily life long if no complication /bleeding noted increased Atorvastatin form 40 mg to 80 mg daily for high intensity stain therapy appreciate PT /OT eval will need acute rehab referral made to [facility] Follow up with neurology in 3 to 4 weeks after discharge from rehab AORTIC STENOSIS: incidental finding ECHO showed There is mild concentric left ventricular hypertrophy. Left ventricular systolic function is normal. Ejection Fraction = 55-60%. The left ventricular wall motion is normal. 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 no evidence of vol overload cont low dose ACEI HYPERTENSION BP stable On Lisinopril Continue monitor BP GERD Continue PPI. CKD III Serum creatinine stable at 1.77 Avoid potential nephrotoxins when able. continue monitor DM TYPE 2 Continue holding 70/30 NovoLog during hospital stay. Lantus / NovoLog per protocol Continue monitor BS. DYSLIPIDEMIA Elevated triglycerides above 500 LDL at goal 69 Continue atorvastatin dose increased to 80 mg for benefit of high intensity statin therapy added fenofibrate for hypertriglyceridemia repeat fasting lipid panel in 6 months VTE PROPHYLAXIS SQ heparin. Ambulate. RESUSCITATION STATUS FULL CODE DISPOSITION stable to be transferred to [facility] . Consultants: Neurology Trevor Vital Signs: Date Time Temp Pulse Resp B/P (MAP) Pulse Ox O2 Delivery O2 Flow Rate FiO2 12/15/16 12:54 36.4 68 20 94 Room Air 12/15/16 11:25 36.4 68 20 135/71 (92) 94 Room Air 12/15/16 08:23 135/66 (89) 12/15/16 07:40 Room Air 12/15/16 07:21 36.5 65 20 109/51 (70) 95 Room Air 12/15/16 04:00 94 Room Air 12/15/16 02:30 36.3 68 18 135/74 (94) 94 Room Air 12/15/16 00:00 94 Room Air 12/14/16 23:05 36.8 66 18 133/71 (91) 94 Room Air 12/14/16 20:00 Room Air 12/14/16 19:46 36.4 70 18 154/68 (96) 94 Room Air 12/14/16 16:00 96 Room Air 12/14/16 15:20 36.3 70 18 139/69 (92) 96 Room Air Lab Results: Results Past 24 Hours Test 12/14/16 16:05 12/14/16 20:06 12/15/16 06:30 12/15/16 11:23 Range/Units Bedside Glucose 178 141 120 141 70-99 mg/dl
[2016-12-15] MEDS ORDERED: FENO1TAB24 PO (11:58)
--- NOTE | 2016-12-15 12:01 | Discharge Summary ---
Discharge Summary Date of Service Dec 15, 2016. Discharge Summary Admission Date: Dec 12, 2016 at 16:37 Discharge Date: Dec 15, 2016 Discharge Disposition: Rehab ([facility] ) Principal Diagnosis: ACUTE LEFT THALAMIC STROKE Procedures: MRI OF BRAIN IMPRESSION: Acute left thalamic infarct. CT HEAD : IMPRESSION: There is no hemorrhage, mass effect, or evidence of acute territorial ischemia by CT criteria. ECHO : The left ventricle is normal in size. There is mild concentric left ventricular hypertrophy. Ejection Fraction = 55-60%. Left ventricular systolic function is normal. The left ventricular wall motion is normal. Right Ventricle The right ventricle is normal size. The right ventricular systolic function is qualitatively normal. EEG : INTERPRETATION: This electroencephalogram reveals evidence for mild nonspecific generalized abnormalities which suggest the presence of a low grade encephalopathy without focal or lateralizing features and without potentially epileptogenic activity. BILATERAL CAROTID DOPPLER : IMPRESSION: No hemodynamically significant stenosis seen within the bilateral common or internal carotid arteries. Mild right external carotid artery stenosis. Consultations: Neurology [facility] Medication Reconciliation New Medications: Fenofibrate (Fenofibrate) 145 Mg Tab 1 TAB PO DAILY for 30 Days, #30 TAB 5 Refills Atorvastatin (Atorvastatin Calcium) 40 Mg Tab 80 MG PO QAM for 30 Days, #60 TAB Clopidogrel Bisulfate (Clopidogrel) 75 Mg Tab 75 MG PO QAM for 30 Days, #30 TAB Continued Medications: Aspirin (Aspirin Ec) 81 Mg Tab 81 MG PO DAILY for 30 Days, #30 TABS 3 Refills continue for 3 months Furosemide (Lasix) 20 Mg Tab 20 MG PO EDEMA Insulin Aspart 70/30 (Novolog Mix 70/30) Susp 36 UNITS SC QAM Insulin Aspart 70/30 (Novolog Mix 70/30) Susp 34 UNITS SC QPM Lisinopril (Zestril) 5 Mg Tab 5 MG PO DAILY Pantoprazole (Protonix) 40 Mg Tab 40 MG PO DAILY Discontinued Medications: Atorvastatin (Lipitor) 40 Mg Tab 40 MG PO DAILY Referrals At Discharge Follow up Referrals: Neurologist Referral - Within 6 Weeks with Shaina Gordon PA-C Admission Information HPI (per Admitting provider): 86 YO male from [facility] followed by Dr. Noyola ([facility], [place]). History of hypertension, DM type 2, and other problems noted below. Retired. Lives at home with his spouse. Has remained active- drives, does yard work, gardening, etc. Occasional mild problems with memory, but nothing unusual per family's observations. 2 nights prior to admission patient stated to family that he felt dizzy or lightheaded. Yesterday he was noted to have slurred speech,confusion, and a slightly unsteady gait. Sugars have been running around 200 (normal for him). Family concerned about persistent confusion, so they brought him to the ED today for evaluation. Patient unable to provide much history. He says that he is doing fine. No apparent fever, cough, GI symptoms, urinary symptoms, chest pain, dyspnea, headache. . Physical Exam (per Admitting): General Appearance: WD/WN, no apparent distress Head: normocephalic, atraumatic Eyes: normal inspection, PERRL, EOMI, funduscopic exam normal ENT: hearing grossly normal, pharynx normal, + pertinent finding Neck: supple, no adenopathy, thyroid normal, trachea midline Respiratory/Chest: lungs clear, no respiratory distress, no accessory muscle use Cardiovascular: regular rate, rhythm, no gallop, no JVD, + systolic murmur, + abnormal peripheral pulses, + pertinent finding Abdomen/GI: normal bowel sounds, non tender, soft, no organomegaly, no pulsatile mass Extremities/Musculoskelatal: normal inspection, no calf tenderness, normal capillary refill, + pertinent finding 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, + pertinent finding Skin: normal color, warm/dry, no rash Lymphatic: no adenopathy (cervical) Hospital Course CONFUSION /ENCEPHALOPATHY : Family observes lightheadedness and dizziness over past 2 days then becomes more confusion and dysarthric speech yesterday possible encephalopathy due to acute cva MRI of the head showed acute left thalamic infarct mental status improved to approx baseline pt will need continued rehab for acute CVA referral made to [facility] ACUTE LEFT THALAMIC INFARCT presented with confusion /dysarthria CT head showed no hemorrhage, mass effect, or evidence of acute territorial ischemia MRI of the head showed acute left thalamic infarct appreciate input form neurology EEG negative for any seizure activity pt will continue with dual antiplatelets ASA/Plavix for at least 3 months than cont on Aspirin 81 mg daily life long if no complication /bleeding noted increased Atorvastatin form 40 mg to 80 mg daily for high intensity stain therapy appreciate PT /OT eval will need acute rehab referral made to [facility] Follow up with neurology in 3 to 4 weeks after discharge from rehab AORTIC STENOSIS: incidental finding ECHO showed There is mild concentric left ventricular hypertrophy. Left ventricular systolic function is normal. Ejection Fraction = 55-60%. The left ventricular wall motion is normal. 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 no evidence of vol overload cont low dose ACEI HYPERTENSION BP stable On Lisinopril Continue monitor BP GERD Continue PPI. CKD III Serum creatinine stable at 1.77 Avoid potential nephrotoxins when able. continue monitor DM TYPE 2 Continue holding 70/30 NovoLog during hospital stay. Lantus / NovoLog per protocol Continue monitor BS. DYSLIPIDEMIA Elevated triglycerides above 500 LDL at goal 69 Continue atorvastatin dose increased to 80 mg for benefit of high intensity statin therapy added fenofibrate for hypertriglyceridemia repeat fasting lipid panel in 6 months VTE PROPHYLAXIS SQ heparin. Ambulate. RESUSCITATION STATUS FULL CODE DISPOSITION stable to be transferred to Acute Rehab -[facility] . Consultants: Neurology Trevor Total time spent on discharge = 40 MINS This includes examination of the patient, discharge planning, medication reconciliation, and communication with other providers. Discharge Instructions Date of Service Dec 15, 2016. Admission Reason for Admission: Altered Mental Status Discharge Discharge Diagnosis / Problem: ACUTE LEFT THALAMIC STROKE Discharge Goals Goal(s): Improve function, Increase independence, Diagnostic testing, Therapeutic intervention Activity Recommendations Activity Level: Assistance Required Therapies: Physical Therapy, Occupational Therapy, Speech Therapy . Additional Information Patient informed of condition: Yes Advance Directives: No DNR: No Level of Care: Acute Rehab Communicable Disease: No Prognosis: Stable Mcgregor Catheter: No Instructions / Follow-Up Instructions / Follow-Up FOLLOW UP WITH FAMILY PHYSICIAN AFTER DISCHARGE FORM REHAB FOLLOW UP WITH NEUROLOGY SHAINA GORDON PA-C IN 2-4 WEEKS AFTER DISCHARGE FORM REHAB CONTINUE ASPIRIN AND PLAVIX FOR 3 MONTHS ( TAKE WITH FOOD ) THEN CONTINUE WITH PLAVIX 75 MG DAILY INDEFINITELY PLEASE NOTIFY PHYSICIAN WITH ANY EVIDENCE OF DARK STOOL , INCREASED BRUISING , NOSE BLEED NEED TO HAVE REPEAT FASTING LIPID PANEL CHECKED IN 6 MONTHS Risk Factors for Stroke: You can reduce your chances of stroke by working with your medical provider to adopt a healthy lifestyle. Some specific ways to lower your chance of stroke are: * If you are a smoker, now is the time to stop smoking cigarettes * If you are diabetic, improve the control of your blood sugars * Avoid excessive amounts of alcohol * Control high blood pressure * Lose weight if you are overweight * Be sure to lead an active lifestyle * Eat a healthy diet low in salt, cholesterol and fat You should know about other risk factors for stroke that you are unable to control. These include: * Age 55 years or older * Male gender * Certain racial groups: , or / * Family History of Stroke, Mini stroke or Heart Attack * Sickle Cell Disease Follow Up: It is important for you to keep your follow up appointments with your medical provider. FOLLOW UP WITH FAMILY PHYSICIAN AFTER DISCHARGE FORM REHAB FOLLOW UP WITH NEUROLOGY SHAINA WORLEY IN 2-4 WEEKS AFTER DISCHARGE FORM REHAB Current Hospital Diet Patient's current hospital diet: AHA Diet (Heart Healthy), Diabetes Type 2 Diet Discharge Diet Recommended Diet: AHA Diet (Heart Healthy), Diabetes Type 2 Diet Pending Studies Studies pending at discharge: no Laboratory Results Lipid Panel Test 12/12/16 06:19 Range/Units Triglycerides Level 511 H 0-150 mg/dl Cholesterol Level 160 0-200 mg/dl HDL Cholesterol 34 mg/dl Cholesterol/HDL Ratio 4.7 LDL Cholesterol, Calculated mg/dl Medical Emergencies . Who to Call and When: Medical Emergencies: If at any time you feel your situation is an emergency, please call 911 immediately. . Non-Emergent Contact Non-Emergency issues call your: Primary Care Provider . . "Provider Documentation" section prepared by Kate Collins. . Core Measure Problem Core Measures: Stroke Stroke Core Measures Reason no t-PA for Stroke: Treatment not indicated Reason no antithrom by day 2: Treatment provided - N/A Reason no antithrom at D/C: Treatment provided - N/A Reason no statin at D/C: Treatment provided - N/A Reason no anticoag w/a fib: Treatment not indicated Additional Copies To Shaina Gordon PA-C
== END 2016-12-15 13:46 | DRG 64 ==
LOC: C.EDB 13:18 → C.2E 15:52 → ENRESERV 15:59 → OBSVTOIN 12-12 16:37
PROVIDERS: ADMIT Hospitalist; ATTEND Hospitalist
DX: I63.8 Other cerebral infarction (principal); G93.40 Encephalopathy, unspecified; Z86.73 Personal history of transient ischemic attack (TIA), and cerebral infarction without residual deficits; Z79.82 Long term (current) use of aspirin; Z79.4 Long term (current) use of insulin; Z79.899 Other long term (current) drug therapy; N18.3 Chronic kidney disease, stage 3 (moderate); E11.22 Type 2 diabetes mellitus with diabetic chronic kidney disease; E78.5 Hyperlipidemia, unspecified; K21.9 Gastro-esophageal reflux disease without esophagitis; I12.9 Hypertensive chronic kidney disease with stage 1 through stage 4 chronic kidney disease, or unspecified chronic kidney disease; I35.0 Nonrheumatic aortic (valve) stenosis